=== PATIENT | female | born 1950 | race Caucasian/White ===

== ENCOUNTER → 2017-09-25 12:28 | Outpatient (CLI) | payer MEDICARE, BC, SELFPAY ==
--- NOTE | 2017-09-25 | DI.MG.S_ITS ---
BILATERAL DIGITAL SCREENING MAMMOGRAM 3D/2D WITH CAD: 09/25/2017 CLINICAL: Routine screening. Family history of breast cancer. Comparison is made to exams dated: 09/13/2015 mammogram, 10/31/2011 mammogram, and 12/01/2007 mammogram - [facility]. The tissue of both breasts is heterogeneously dense. This may lower the sensitivity of mammography. Current study was also evaluated with a Computer Aided Detection (CAD) system. No significant masses, calcifications, or other findings are seen in either breast. There has been no significant interval change. IMPRESSION: NEGATIVE There is no mammographic evidence of malignancy. A 1 year screening mammogram is recommended. This exam was interpreted at Station ID: [id number]. NOTE: For mammograms, a report in lay terms will be sent to the patient. Approximately 15% of breast malignancies will not be visualized mammographically. In the management of a palpable breast mass, a negative mammogram must not discourage biopsy of a clinically suspicious lesion. Electronically Signed By: Pete najera/shanice:09/25/2017 17:05:35 letter sent: Normal Exam ACR BI-RADS Category 1: Negative [id number]
== END ==
PROVIDERS: PCP Family Medicine; Visit Provider Family Medicine
DX: Z12.31 Encounter for screening mammogram for malignant neoplasm of breast (principal); Z80.3 Family history of malignant neoplasm of breast
CPT/HCPCS: 77063; 77067

== ENCOUNTER → 2017-11-14 07:24 | Outpatient (CLI) | payer MEDICARE, BC, SELFPAY ==
[2017-11-14 09:22] LABS: Cholesterol 190 mg/dL (140-199); Glucose 86 mg/dL (80-110); HDL Cholesterol 66 mg/dL (40-60); LDL Cholesterol Calculated 110 mg/dL (<100); Triglycerides 71 mg/dL (35-150)
== END ==
PROVIDERS: Family Provider Family Medicine; PCP Family Medicine; Visit Provider Family Medicine
DX: Z13.1 Encounter for screening for diabetes mellitus (principal); Z13.220 Encounter for screening for lipoid disorders
CPT/HCPCS: 36415; 80061; 82947

== ENCOUNTER → 2017-12-19 13:40 | Outpatient (CLI) | payer MEDICARE, BC, SELFPAY ==
--- NOTE | 2017-12-19 13:41 | DI.RAD.S_ITS ---
This blank DEXA report has been sent in error by the PACS system. The correct and complete report will be forthcoming in 1-2 days. Thank you for your patience and understanding. Dictated by: Satya Garcia M.D. on 12/19/2017 at 14:35 Approved by: Satya Garcia M.D. on 12/19/2017 at 14:36
== END ==
PROVIDERS: PCP Family Medicine; Visit Provider Family Medicine
DX: M85.852 Other specified disorders of bone density and structure, left thigh (principal); Z78.0 Asymptomatic menopausal state; Z82.62 Family history of osteoporosis
CPT/HCPCS: 77080

== ENCOUNTER 2018-04-23 12:37 | Day surgery (SDC) | payer MEDICARE, BC, SELFPAY ==
--- NOTE | 2018-04-23 | PATH_ITS ---
[facility] Accession Number: [id number] . 01 Material submitted: . SIGMOID POLYP AT 18CM . 02 Diagnosis: Sigmoid Polyp at 18 cm: Serrated lesion, favor sessile serrated adenoma. [facility]/04/24/2018 . 02 Electronically signed: . Kaylyn Tobin MD, Pathologist NPI- [id number] . 01 Gross description: . Received three formalin-filled containers each labeled with the patient's name. . A. In a container labeled antrum are two less than 0.1 to 0.1 cm portions of tissue. Entirely submitted in cassette A. B. In a container labeled GE junction, the specimen consists of two 0.1 to 0.2 cm portions of tissue. Entirely submitted in cassette B. C. In a container labeled fundic polyp, the specimen consists of a 0.3 cm portion of tissue. Entirely submitted in cassette C. ([facility] [place][id number]) /[facility] . 02 Pathologist provided ICD-10: K63.5 . 02 CPT . 598079 Performed at: 01 [facility] [address] [facility], [place], [place] [id number] MD Pete Hoffman MD Phone: [phone] Performed at: 02 [facility] [place] [address] [place], [place] [id number] MD Diana Bernabe MD Phone: [phone]
[2018-04-23] MEDS: SODIUM CHLORIDE 0.9% 1,000 ML 200 ML IV (12:55)
[2018-04-23 13:10] VITALS: BP 108/72; PULSE 67; RESP 16; TEMP 36.9; O2SAT 100; BMI 17.8
--- NOTE | 2018-04-23 13:18 | PM.HP.1 ---
History of Present Illness Date Patient Seen: 04/23/18 Time Patient Seen: 13:18 Chief complaint: colonoscopy [id number] Narrative: 67-year-old female who last underwent colonoscopy 10 years ago for screening purposes. She presents now for surveillance. She has no new gastrointestinal symptoms. Denies nausea, vomiting, unintended weight loss, loss of appetite, abdominal pain, change in bowel habits, diarrhea, constipation, melena, hematochezia, or bright red blood per rectum. Patient History Medical History Acne (Chronic ~1964) Actinic keratosis (Chronic ~2014) Anxiety (Chronic ~1964) Chronic back pain (Chronic ~1984) Chronic cough (Chronic) Depression (Chronic ~1964) Foot pain (Chronic) Hemorrhoid (Chronic ~1984) Kidney stones (Chronic ~2012) Mitral valve insufficiency (Chronic ~2005) Osteoarthritis (Chronic ~2012) Seasonal allergies (Chronic) Seborrheic dermatitis (Chronic ~2013) Shoulder pain (Chronic ~2011) Skin cancer, basal cell (Chronic ~2004) Vision disorder (Chronic) Chicken pox (Resolved ~1956) Measles (Resolved ~1954) Mumps (Resolved ~1958) Surgical History History of colonoscopy (Acute) Anesthesia (Resolved) History of removal of cyst (Resolved) Status post Mohs surgery (Resolved) Status post appendectomy (05/03/07) Family History Father Prostate cancer Grandfather Heart disease Mother Age: 93 Uterine cancer Stroke Breast cancer Congestive heart failure Diabetes mellitus Hypertension High cholesterol History of fracture of both hips Sister Age: 62 Stress Grandmother No problems noted. Grandfather Cancer Grandmother Heart disease Social History marital status: number of children: 2 household members: spouse lives independently: Yes education level: college occupational status: other (retired) Smoking Status: Never smoker alcohol intake: current (rare) substance use type: does not use Family & Social History Family History Father Prostate cancer Grandfather Heart disease Mother Age: 93 Uterine cancer Stroke Breast cancer Congestive heart failure Diabetes mellitus Hypertension High cholesterol History of fracture of both hips Sister Age: 62 Stress Grandmother No problems noted. Grandfather Cancer Grandmother Heart disease Social History: household members spouse lives independently Yes Tobacco & Substance use: Smoking Status Never smoker alcohol intake current Meds Home Medications Medication Instructions Recorded Confirmed Type cholecalciferol (vitamin D3) 2,000 2,000 unit PO DAILY #90 cap 11/19/17 11/19/17 Rx unit capsule magnesium 250 mg tablet 250 mg PO DAILY #90 tab 11/19/17 11/19/17 Rx omega-3 fatty acids 1,000 mg 1,000 mg PO DAILY #90 cap 11/19/17 11/19/17 Rx capsule varicella-zoster glycoE [id number] 0.5 ml IM ONCE #1 each 11/19/17 11/19/17 Rx adj(PF) 50 mcg/0.5 mL IM susp, kit hydrochlorothiazide 25 mg tablet 25 mg PO QDAY #90 tab 02/19/18 Rx Allergies Allergy/AdvReac Type Severity Reaction Status Date / Time erythromycin base AdvReac Unknown GI UPSET Verified 11/19/17 09:05 [ERYTHROMYCIN BASE] Review of Systems Review of Systems All systems reviewed & are unremarkable except as noted in HPI and below Exam Vital Signs (past 8 hours): - 04/23/18 13:10 Temperature 98.4 F Pulse Rate 67 Respiratory Rate 16 Blood Pressure 108/72 Pulse Oximetry 100 Oxygen Delivery Method Room Air Narrative Exam Narrative: Well-nourished well-developed thin female in no acute distress. Alert oriented x3 Sclera nonicteric Regular rate and rhythm at the moment Abdomen soft, nondistended, nontender Extremities show no clubbing or cyanosis Objective Labs Labs: No laboratory or radiographic studies for review Assessment & Plan Assessment Narrative: 67-year-old female requiring colorectal screening since it has been 10 years from her last examination. Colonoscopy is currently recommended. Technical details of the procedure were discussed. Risks, benefits, alternatives were explained. Risks including but not limited to sedation, aspiration, bleeding, pain, missed lesion, incomplete examination, need for further radiographic studies, colonic perforation, need for major abdominal surgery, and all attendant risks of surgery were discussed in detail. All questions were answered to her satisfaction, and she voiced understanding. Consent was placed on the chart. We will proceed as above.
--- NOTE | 2018-04-23 13:21 | PM.PREOP ---
Pre-operative Note Interval Note History & Physical reviewed/Exam performed by Physician: Yes Changes to H&P: No H&P completed within 30 days and has changed as indicated here:: Patient seen and examined today. History and physical examination placed on the chart. Obviously, there have been no changes in the last 10 min. Proceed with colonoscopy today as planned. ASA Class (for procedural sedation): II
[2018-04-23] MEDS: fentaNYL 250 MCG/5 ML INJ IV (13:30)
[2018-04-23] MEDS: MIDAZOLAM 5 MG/5 ML VIAL IV (13:30)
[2018-04-23 13:50] VITALS: BP 99/60; PULSE 60; RESP 12; TEMP 36; O2SAT 97
--- NOTE | 2018-04-23 13:50 | P.OP.ENDO_ITS ---
Operative Date/Time/Diagnoses Date of procedure: 04/23/18 Time of procedure: 13:48 Pre-op diagnosis: Colorectal screening Post-op diagnosis: other (Diverticulosis and sigmoid colon polyp) Procedure & Clinicians Study performed: 1. Sedation per surgeon 2. Colonoscopy with cold forceps polypectomy Same procedure as scheduled: Yes Indications: 67-year-old female who presents for colorectal screening. It has been approximately 10 years since her last examination. She review currently requires colonoscopy for surveillance. Surgeon: Pollo Perry Procedure Notes SCOAP/Timeout: Yes Procedure in detail: After obtaining informed consent, the patient was brought to the GI suite and placed in the left lateral decubitus position on the examination table. After placement of appropriate monitors, the patient was given incremental doses of Versed and Fentanyl until an appropriate level of sedation was achieved. A time out was held per SCOAP protocol. A digital rectal examination was performed and did not reveal any masses or obstructing lesions. The colonoscope was gently passed into the patient's anus and the entire colon navigated to the level of the cecum with minimal difficulty. Once in the cecum, the scope was withdrawn being sure to go before and beyond all mucosal folds and prominences and get an excellent examination. The findings are noted above. At the level of the rectal vault, the scope was r etroflexed and the internal anal canal was examined. The scope was straightened and air aspirated from the colon. The instrument was removed from the patient's body and the procedure was concluded. The patient was allowed to awaken from sedation without difficulty and taken to the post-anesthesia care unit in good condition. Scope withdrawal time: 9:03 min Sedation minutes: 22 Findings: diverticulosis and polyp Specimen(s): other (Sigmoid polyp at 18 cm) Complications: none Impression: See above Recommendations: Colonscopy in 5 years, High fiber diet and Will call with biopsy results Plan for aftercare: 1. Discharge home Follow up: as needed Disposition: PACU
[2018-04-23 13:55] VITALS: BP 109/61; PULSE 61; RESP 11; O2SAT 98
[2018-04-23 14:00] VITALS: BP 93/54; PULSE 68; RESP 15; O2SAT 99
[2018-04-23 14:06] VITALS: BP 109/65; PULSE 64; RESP 18; TEMP 36.5; O2SAT 99
[2018-04-23 14:50] VITALS: BP 105/60; PULSE 60; RESP 16; TEMP 36.3; O2SAT 100
== END 2018-04-23 15:00 | disposition home or self-care (01) ==
PROVIDERS: PCP Family Medicine; Visit Provider Surgery
PROC: 0DJD8ZZ Inspection of Lower Intestinal Tract, Via Natural or Artificial Opening Endoscopic (ICD-10-PCS; CPT 45378; principal; 2018-04-23 14:00)
DX: Z12.11 Encounter for screening for malignant neoplasm of colon (principal); K57.30 Diverticulosis of large intestine without perforation or abscess without bleeding; D12.5 Benign neoplasm of sigmoid colon; F41.9 Anxiety disorder, unspecified; F33.41 Major depressive disorder, recurrent, in partial remission
CPT/HCPCS: 45380; 88305; 99152; J2250; J3010

== ENCOUNTER 2018-04-25 10:27 | Emergency (ER) | payer MEDICARE, BC, SELFPAY ==
[2018-04-25 10:35] VITALS: BP 107/63; PULSE 71; RESP 16; TEMP 36.6; O2SAT 98
--- NOTE | 2018-04-25 12:26 | ED_ITS ---
HPI - Nausea/Vomiting/Diarrhea <Marysol Yancey PA-C - Last Filed: 04/25/18 16:40> General Chief complaint: Nausea/Vomiting/Diarrhea Stated complaint: colonoscopy on states weak, queezy since Time Seen by Provider: 04/25/18 12:25 Source: patient Mode of arrival: ambulatory Limitations: no limitations History of Present Illness HPI Narrative: This 67-year-old female comes to ED due to persistent nausea. She states that this started following her colonoscopy and she vomited prior to leaving the hospital here. She states that she has not had vomiting since then though close a few times. She states that nausea is worse with sitting up for a bit, after which she will start to feel queasy . She has been taking fluids and has had a couple of glasses of water today she says, but food seems to sit in her stomach. She states that she has belching and just started passing flatus today. No bowel movement yet. She does not have abdominal pain. She does not have urinary symptoms. She denies chest pain or dyspnea. She states that she feels weak and dizzy when she sits up, which she describes as a little lightheaded. She denies other complaints on systems r eview Related Data Previous Rx's Medication Instructions Recorded cholecalciferol (vitamin D3) 2,000 2,000 unit PO DAILY #90 cap 11/19/17 unit capsule magnesium 250 mg tablet 250 mg PO DAILY #90 tab 11/19/17 omega-3 fatty acids 1,000 mg 1,000 mg PO DAILY #90 cap 11/19/17 capsule varicella-zoster glycoE [id number] 0.5 ml IM ONCE #1 each 11/19/17 adj(PF) 50 mcg/0.5 mL IM susp, kit hydrochlorothiazide 25 mg tablet 25 mg PO QDAY #90 tab 02/19/18 ondansetron 4 mg PO Q8H PRN #8 tab 04/25/18 Allergies Allergy/AdvReac Type Severity Reaction Status Date / Time erythromycin base AdvReac Unknown GI UPSET Verified 11/19/17 09:05 [ERYTHROMYCIN BASE] Review of Systems <Maryosl Yancey PA-C - Last Filed: 04/25/18 16:40> Review of Systems ROS Unobtainable: All systems reviewed & are unremarkable except as noted in HPI and below PFSH <Marysol Yancey PA-C - Last Filed: 04/25/18 16:40> Medical History Acne (Chronic ~1964) Actinic keratosis (Chronic ~2014) Anxiety (Chronic ~1964) Chronic back pain (Chronic ~1984) Chronic cough (Chronic) Depression (Chronic ~1964) Foot pain (Chronic) Hemorrhoid (Chronic ~1984) Kidney stones (Chronic ~2012) Mitral valve insufficiency (Chronic ~2005) Osteoarthritis (Chronic ~2012) Seasonal allergies (Chronic) Seborrheic dermatitis (Chronic ~2013) Shoulder pain (Chronic ~2011) Skin cancer, basal cell (Chronic ~2004) Vision disorder (Chronic) Chicken pox (Resolved ~1956) Measles (Resolved ~1954) Mumps (Resolved ~1958) Family History Father Prostate cancer Grandfather Heart disease Mother Age: 93 Uterine cancer Stroke Breast cancer Congestive heart failure Diabetes mellitus Hypertension High cholesterol History of fracture of both hips Sister Age: 62 Stress Grandmother No problems noted. Grandfather Cancer Grandmother Heart disease Social History marital status: number of children: 2 household members: spouse lives independently: Yes education level: college occupational status: other (retired) Smoking Status: Never smoker alcohol intake: current (rare) substance use type: does not use Exam <Marysol Yancey PA-C - Last Filed: 04/25/18 16:40> Narrative Exam Narrative: Postural vitals: Standing BP 104/64, pulse 63, BP sitting 108/73, pulse 64, BP standing 114/60, pulse 60 GENERAL APPEARANCE: Patient sitting comfortably, in no distress. HEENT: PERRL, EOMI, no scleral icterus, conjunctivae pink NECK: Supple LUNGS: Clear to auscultation bilaterally. HEART: Rate and rhythm regular, normal S1 and S2, no S3 or S4. ABDOMEN: Soft, nontender, nondistended, bowel sounds present x 4 quadrants, no masses palpable, no hepatosplenomegaly. EXTREMITIES: No edema, no calf tenderness DERMATOLOGIC: No jaundice or exanthem NEUROLOGIC: Alert and oriented with normal speech and coordination Initial Vital Signs Initial Vital Signs: Vital Signs Temperature 97.9 F 04/25/18 10:35 Pulse Rate 71 04/25/18 10:35 Respiratory Rate 16 04/25/18 10:35 Blood Pressure 107/63 04/25/18 10:35 Pulse Oximetry 98 04/25/18 10:35 <Nathalia Romero DO - Last Filed: 04/25/18 18:41> Initial Vital Signs Initial Vital Signs: Vital Signs Temperature 97.9 F 04/25/18 10:35 Pulse Rate 71 04/25/18 10:35 Respiratory Rate 16 04/25/18 10:35 Blood Pressure 107/63 04/25/18 10:35 Pulse Oximetry 98 04/25/18 10:35 Course <Marysol Yancey PA-C - Last Filed: 04/25/18 16:40> Additional Information: Patient has not had any vomiting while in the department. She states the only episode of vomiting she had was prior to leaving the hospital after procedure. She is tolerating fluids and some bland food here in the department after Zofran. She is belching frequently she says and started passing flatus today. She has no abdominal pain or tenderness on exam and bowel sounds are normal. Advised continued treatment of nausea and return if any acute changes such as abdominal pain or fever, and she is agreeable with this plan. Orders Ordered: Discontinued Medications Ondansetron HCl (Zofran Odt) 4 mg PO NOW ONE Stop: 04/25/18 12:34 Last Admin: 04/25/18 12:51 Dose: 4 mg Vital Signs - 8 hr 04/25/18 12:39 04/25/18 12:42 04/25/18 12:45 Pulse Rate Pulse Rate [Orthostatic Lying] 60 Pulse Rate [Orthostatic Sitting] 64 Pulse Rate [Orthostatic Standing] 63 Respiratory Rate Blood Pressure Blood Pressure [Orthostatic Lying] 114/60 Blood Pressure [Orthostatic Sitting] 108/73 Blood Pressure [Orthostatic Standing] 104/64 Blood Pressure [Right Arm] 114/60 104/64 Pulse Oximetry 04/25/18 13:33 04/25/18 14:18 Pulse Rate 60 76 Pulse Rate [Orthostatic Lying] Pulse Rate [Orthostatic Sitting] Pulse Rate [Orthostatic Standing] Respiratory Rate 17 16 Blood Pressure 106/62 Blood Pressure [Orthostatic Lying] Blood Pressure [Orthostatic Sitting] Blood Pressure [Orthostatic Standing] Blood Pressure [Right Arm] 104/58 L Pulse Oximetry 100 96 <Nathalia Romero DO - Last Filed: 04/25/18 18:41> Orders Ordered: Discontinued Medications Ondansetron HCl (Zofran Odt) 4 mg PO NOW ONE Stop: 04/25/18 12:34 Last Admin: 04/25/18 12:51 Dose: 4 mg Vital Signs - 8 hr 04/25/18 12:39 04/25/18 12:42 04/25/18 12:45 Pulse Rate Pulse Rate [Orthostatic Lying] 60 Pulse Rate [Orthostatic Sitting] 64 Pulse Rate [Orthostatic Standing] 63 Respiratory Rate Blood Pressure Blood Pressure [Orthostatic Lying] 114/60 Blood Pressure [Orthostatic Sitting] 108/73 Blood Pressure [Orthostatic Standing] 104/64 Blood Pressure [Right Arm] 114/60 104/64 Pulse Oximetry 04/25/18 13:33 04/25/18 14:18 Pulse Rate 60 76 Pulse Rate [Orthostatic Lying] Pulse Rate [Orthostatic Sitting] Pulse Rate [Orthostatic Standing] Respiratory Rate 17 16 Blood Pressure 106/62 Blood Pressure [Orthostatic Lying] Blood Pressure [Orthostatic Sitting] Blood Pressure [Orthostatic Standing] Blood Pressure [Right Arm] 104/58 L Pulse Oximetry 100 96 Discharge Plan Departure Patient Disposition: Home Clinical Impression: Nausea after anesthesia Qualifiers: Encounter type: initial encounter Qualified Code(s): T88.59XA - Other complications of anesthesia, initial encounter Discharge Date/Time: 04/25/18 14:15 Interventions: ED Discharge Assessment Last Done: 04/25/18 14:18 Instructions: DI for Nausea -- Adult Activity Restrictions/Additional Instructions: Since you are feeling a little bit better and keeping down food and fluids, you can a monitor at home. Please return as we talked about if you have acutely worsening symptoms, or new symptoms such as fever, protracted vomiting, or abdominal pain. Otherwise, I have sent in a prescription for antinausea medicine for you to take as needed. Please continue frequent clear fluids, and try to keep a little bit of bland food in your belly, try to eat a small amount every hr or 2 to help with the nausea (i.e. Bananas, white rice, toast, clear broth, applesauce). You can advance your diet as tolerated when you are feeling better. You can add liquid antacid or Gas-X if needed. Please follow-up with your surgeon or PCP if you are not feeling better over the next couple of days. Prescriptions: New ondansetron 4 mg tablet,disintegrating 4 mg PO Q8H PRN (Reason: nausea and vomiting) Qty: 8 RF: 0 No Action hydrochlorothiazide 25 mg tablet 25 mg PO QDAY Qty: 90 RF: 3 omega-3 fatty acids [Fish Oil Concentrate] 1,000 mg capsule 1,000 mg PO DAILY Qty: 90 RF: 0 magnesium 250 mg tablet 250 mg PO DAILY Qty: 90 RF: 0 cholecalciferol (vitamin D3) 2,000 unit capsule 2,000 unit PO DAILY Qty: 90 RF: 0 varicella-zoster [id number]-AS01B (PF) [Shingrix (PF)] 50 mcg/0.5 mL suspension for reconstitution 0.5 ml IM ONCE Qty: 1 RF: 1 Referrals: Pollo Perry MD [Physician] - Ember Pritchard DO [Primary Care Provider] - <Nathalia Romero DO - Last Filed: 04/25/18 18:41> Cosign ED Attending Cosignature Attestation: I was immediately available in the department for consultation. This documentation has been reviewed. Supervised by Nathalia Romero DO
[2018-04-25 12:39] VITALS: BP 114/60
[2018-04-25 12:42] VITALS: BP 104/64
[2018-04-25 12:45] VITALS: BP 104/64; BP 108/73; BP 114/60; PULSE 60; PULSE 63; PULSE 64
[2018-04-25] MEDS: ONDANSETRON 4 MG ODT PO (12:51)
[2018-04-25 13:33] VITALS: BP 104/58; PULSE 60; RESP 17; O2SAT 100
--- NOTE | 2018-04-25 13:50 | PC.NURSE ---
Pt tolerating applesauce, crackers, and liquids. Denies nausea at this time.
--- NOTE | 2018-04-25 14:14 | PC.NURSE ---
I agree with all assessments and treatments completed by student nurse.
[2018-04-25 14:18] VITALS: BP 106/62; PULSE 76; RESP 16; O2SAT 96
== END 2018-04-25 14:15 | disposition home or self-care (01) ==
PROVIDERS: Emergency Provider Internal Medicine; PCP Family Medicine
DX: T88.59XA Other complications of anesthesia, initial encounter (principal); R11.0 Nausea
CPT/HCPCS: 99283

== ENCOUNTER → 2019-07-06 14:39 | Outpatient (CLI) | payer MEDICARE, BC, SELFPAY ==
[2019-07-06 14:56] LABS: Bacteria Urine None Seen
[2019-07-06 16:17] LABS: Appearance Urine UA CLEAR; Bilirubin Urine UA NEGATIVE (NEGATIVE); Color Urine UA YELLOW; Glucose Urine UA NEGATIVE (Negative); Ketones Urine UA NEGATIVE (NEGATIVE); Leukocyte Esterase Urine UA NEGATIVE (NEGATIVE); Nitrite Urine UA NEGATIVE (Negative); Occult Blood Urine UA 3+ (Negative); Protein Urine UA NEGATIVE (Negative); Specific Gravity Urine UA <=1.005 (1.000-1.035); Urobilinogen Urine UA 0.2 E.U./dL (0.2)
[2019-07-06 16:27] LABS: pH Urine UA 6.5 (4.5-8.0)
[2019-07-06 16:32] LABS: Hematocrit 38.5 % (36-46); Hemoglobin 13.2 g/dL (12.0-16.0); Mean Corpuscular HGB Conc 34.2 % (30-36); Mean Corpuscular Hemoglobin 33.1 PG (26-34); Mean Corpuscular Volume 96.6 fL (80-100); Platelet Count 249 X10^3/uL (150-400); Red Blood Cell Count 3.99 X10^6/uL (4.0-5.2); Red Cell Distribution Width 13.3 % (11.6-14.8); White Blood Cell Count 5.2 X10^3/uL (4.5-11.0)
[2019-07-06 16:38] LABS: Culture Indicated Urine Cult Not Indicated; RBC Urine 10-30/HPF (0-5/HPF); Squamous Epithelial Cell Urine 0-1 /HPF (0-5/HPF); WBC Urine 0-1/HPF (0-5/HPF)
[2019-07-06 16:44] LABS: Alanine Aminotransferase 16 IU/L (<35); Albumin 4.2 g/dL (3.5-5.0); Albumin Globulin Ratio 1.2 (1.0-2.8); Alkaline Phosphatase 79 U/L (38-126); Aspartate Aminotransferase 29 IU/L (14-36); BUN Creatinine Ratio 24.6 (6-22); Bilirubin Total 0.9 mg/dL (0.2-1.3); Blood Urea Nitrogen 16 mg/dL (7-17); Calcium 9.3 mg/dL (8.4-10.2); Carbon Dioxide 34 mmol/L (22-32); Chloride 99 mmol/L (98-107); Estimated Glomerular Filt Rate > 60.0 mL/min (>60); Globulin 3.4 g/dL (1.7-4.1); Glucose 156 mg/dL (80-110); HEMOLYSIS < 15 (0-50); Sodium 138 mmol/L (137-145); Total Protein 7.6 g/dL (6.3-8.2)
[2019-07-06 17:54] LABS: Neutrophils Absolute Manual 3328 /uL (3000-5900); RBC Morphology Normal Morphology; Total Cells Counted 100
== END ==
PROVIDERS: PCP Family Medicine; Referring Provider Family Medicine; Visit Provider Family Medicine
DX: R31.9 Hematuria, unspecified (principal)
CPT/HCPCS: 36415; 80053; 81001; 85025

== ENCOUNTER → 2019-07-19 07:58 | Outpatient (CLI) | payer MEDICARE, BC, SELFPAY ==
[2019-07-19 08:52] LABS: Appearance Urine UA SL CLOUDY; Bilirubin Urine UA NEGATIVE (NEGATIVE); Color Urine UA RED; Glucose Urine UA NEGATIVE (Negative); Ketones Urine UA NEGATIVE (NEGATIVE); Leukocyte Esterase Urine UA TRACE (NEGATIVE); Nitrite Urine UA NEGATIVE (Negative); Occult Blood Urine UA 3+ (Negative); Protein Urine UA 2+ (Negative); Urobilinogen Urine UA 0.2 E.U./dL (0.2)
[2019-07-19 09:00] LABS: BUN Creatinine Ratio 20.6 (6-22); Blood Urea Nitrogen 14 mg/dL (7-17); Calcium 9.2 mg/dL (8.4-10.2); Carbon Dioxide 31 mmol/L (22-32); Chloride 101 mmol/L (98-107); Estimated Glomerular Filt Rate > 60.0 mL/min (>60); Glucose 98 mg/dL (80-110); HEMOLYSIS < 15 (0-50); Potassium 3.3 mmol/L (3.4-5.1); Sodium 139 mmol/L (137-145)
[2019-07-19 09:02] LABS: Bacteria Urine Few (2-10); RBC Urine >100/HPF (0-5/HPF); Squamous Epithelial Cell Urine 1-5 /HPF (0-5/HPF); WBC Urine 1-5/HPF (0-5/HPF)
[2019-07-19 09:03] LABS: Culture Indicated Urine Specimen Cultured
== END ==
PROVIDERS: PCP Family Medicine; Referring Provider Family Medicine; Visit Provider Family Medicine
DX: E87.6 Hypokalemia (principal); R73.09 Other abnormal glucose; R31.9 Hematuria, unspecified
CPT/HCPCS: 36415; 80048; 81001; 87086

== ENCOUNTER → 2019-07-21 09:10 | Outpatient (CLI) | payer MEDICARE, BC, SELFPAY ==
--- NOTE | 2019-07-21 09:12 | DI.US.S_ITS ---
PROCEDURE: US RENAL COMPLETE INDICATIONS: PERSISTENT HEMATURIA TECHNIQUE: Real-time scanning was performed of the kidneys and bladder, with image documentation. COMPARISON: None. FINDINGS: Kidneys: Kidneys are normal in size. Right kidney measures 8.8 cm long; left kidney measures 10.2 cm long. Right renal cortical thickness is 1.1 cm; left renal cortical thickness is 1.4 cm. Renal cortical echotexture is normal. No hydronephrosis or nephrolithiasis. No suspicious solid mass lesions. Bladder: Pre-void bladder volume is 99 mL. Post-void residual is zero mL. Pre-void images demonstrate no intraluminal masses or stones. On pre-void images, both of the ureteral jets are noted with color Doppler interrogation. (Of note, ureteral jets may not be detectable in up to 25% of cases due to insufficient differences in specific gravity between ureteral and bladder urine). Presumed echogenic debris versus blood product seen in the bladder Miscellaneous: No free pelvic fluid. IMPRESSION: Nonspecific presumed debris versus blood products within the bladder. Dictated by: Kaleb Irizarry M.D. on 07/21/2019 at 12:43 Approved by: Kaleb Irizarry M.D. on 07/21/2019 at 12:51
== END ==
PROVIDERS: PCP Family Medicine; Referring Provider Family Medicine; Visit Provider Family Medicine
DX: N02.9 Recurrent and persistent hematuria with unspecified morphologic changes (principal)
CPT/HCPCS: 76770

== ENCOUNTER → 2019-08-04 11:40 | Outpatient (CLI) | payer MEDICARE, BC, SELFPAY ==
--- NOTE | 2019-08-04 11:42 | DI.CT.S_ITS ---
PROCEDURE: CT ABDOMEN PELVIS WO/W CON INDICATIONS: hematuria, h/o renal calculi TECHNIQUE: Optional 5 mm thick noncontrast images acquired from the diaphragm to the symphysis pubis. After the administration of intravenous contrast, 5 mm thick images acquired from the diaphragm to the symphysis pubis after a 10-minute delay. 2 mm thick coronal and sagittal reformats were then performed of the kidneys and ureters. For radiation dose reduction, the following was used: automated exposure control, adjustment of mA and/or kV according to patient size. COMPARISON: [facility], , RENAL COMPLETE, 07/21/2019, 9:23. FINDINGS: Image quality: Excellent. Lung bases: Lung bases are clear. Heart size is normal. Urinary system: Both kidneys are normal in size, without hydronephrosis or nephrolithiasis on pre-contrast images on the left. In contrast there is moderate right-sided hydronephrosis and a 4 x 6 mm calculus appears present within the right renal collecting system partially obscured by overlying contrast on the delayed postcontrast imaging. This calculus is located with additional adjacent punctate calculi at the anterior calyx of the lower third of the right kidney Hydroureter on the right extends inferiorly to the junction of the middle and lower thirds of the ureter, seen on series 2 image 50. Dilatation of the ureter below this level is not present. No perinephric fat stranding. There is normal bilateral renal enhancement. Renal calyces appear normal in morphology when filled with contrast. Opacified portions of both ureters demonstrate normal caliber. Bladder wall thickness is normal. No calcified bladder stones. Other solid organs: Liver is normal in size and enhancement. Gallbladder appears normal. Biliary system is non dilated. Pancreas enhances normally. Spleen is normal in size and enhancement. No adrenal nodules. Peritoneum and bowel: Bowel loops demonstrate normal wall thickness and caliber. No free fluid or air. Nodes and vessels: No retroperitoneal or mesenteric adenopathy by size criteria. Aorta and inferior vena cava are normal in size. Abdominal wall: No ventral hernias. Pelvis: No pathologic free pelvic fluid. No inguinal hernias or adenopathy. Bones: No suspicious bony lesions. No vertebral body compression fractures. IMPRESSION: 1. No left-sided urinary tract abnormality found. 2. Impacted 4 x 6 mm calculus is present causing moderate hydronephrosis and hydroureter on the right with a calculus located at the junction of the middle and lower thirds of the right ureter within the pelvis. 3. A nonobstructive calculus measuring also approximately 4 x 6 mm with several adjacent punctate calculi is present within the collecting system of the lower third of the right kidney and these calculi are not themselves obstructive. 4. No urothelial or renal cortical mass is suspected, no bladder mass or calculus is seen. Dictated by: Michael Petty M.D. on 08/04/2019 at 14:40 Approved by: Michael Petty M.D. on 08/04/2019 at 14:45
[2019-08-04 12:27] LABS: BUN Creatinine Ratio 27.5 (6-22); Blood Urea Nitrogen 19 mg/dL (7-17); Estimated Glomerular Filt Rate > 60.0 mL/min (>60)
== END ==
PROVIDERS: PCP Family Medicine; Referring Provider Family Medicine; Visit Provider Family Medicine
DX: Z01.812 Encounter for preprocedural laboratory examination (principal); N13.2 Hydronephrosis with renal and ureteral calculous obstruction; R31.9 Hematuria, unspecified; Z87.442 Personal history of urinary calculi
CPT/HCPCS: 36415; 74178; 82565; 84520; Q9967

== ENCOUNTER → 2019-08-16 08:38 | Outpatient (CLI) | payer MEDICARE, BC, SELFPAY ==
--- NOTE | 2019-08-16 | DI.RAD.S_ITS ---
PROCEDURE: XR KUB INDICATIONS: Calculus of kidney TECHNIQUE: One view of the abdomen acquired. COMPARISON: [facility], CT, CT ABDOMEN PELVIS WO/W CON, 08/04/2019, 12:27. [facility], CR, KUB XRAY (1 VIEW ABDOMEN), 08/29/2015, 13:31. FINDINGS: Surgical changes and devices: None. Bowel: Bowel gas pattern is normal. There is a moderate amount of stool seen within the colon. Soft tissues: The previously seen distal right ureteral stone is not seen by plain film. The previously seen right renal stones are also not definitely seen. Calcifications can be seen overlying the superior aspect of the right kidney, which are attributed to rib cartilage calcification. Visualized solid organ contours appear normal in size. Bones: No suspicious bony lesions. Mild dextroconvex scoliotic curvature is seen. IMPRESSION: The previously seen right-sided kidney stones and right ureteral stone that can be seen on CT are not definitely seen by plain film. Dictated by: Michael Mccarty M.D. on 08/16/2019 at 8:20 Approved by: Michael Mccarty M.D. on 08/16/2019 at 8:23
== END ==
PROVIDERS: PCP Family Medicine; Referring Provider Specialist; Visit Provider Specialist
DX: N20.0 Calculus of kidney (principal)
CPT/HCPCS: 74018

== ENCOUNTER → 2019-08-24 09:43 | Outpatient (CLI) | payer MEDICARE, BC, SELFPAY ==
--- NOTE | 2019-08-24 | DI.CT.S_ITS ---
PROCEDURE: CT KIDNEY URETER BLADDER (KUB) INDICATIONS: calculus of kidney TECHNIQUE: Noncontrast 5 mm thick sections acquired from the diaphragms to the symphysis. 5 mm thick coronal and sagittal reformats were then performed. For radiation dose reduction, the following was used: automated exposure control, adjustment of mA and/or kV according to patient size. COMPARISON: [facility], CT, IVP (ABD & PEL WWO CONTRAST), 07/12/2014, 8:55. [facility], CT, CT ABDOMEN PELVIS WO/W CON, 08/04/2019, 12:27. [facility], US, US RENAL COMPLETE, 07/21/2019, 9:23. [facility], CR, XR KUB, 08/16/2019, 8:54. FINDINGS: Image quality: Excellent. Lung bases: Lung bases are clear. Heart size is normal. Urinary system: There is an obstructing right ureteral stone measuring 6 mm, which is seen at the S1 level, which is similar to the prior examination. There is prominent right-sided hydroureter and hydronephrosis. Nonobstructing right-sided kidney stones are seen, with an irregular 9 mm stone seen. No definite left-sided kidney stones are seen. Both kidneys are normal in size. Bladder wall thickness is normal; no calcified bladder stones. Other solid organs: Liver is normal in size. Gallbladder wall does not appear thickened. Pancreas is normal in contours. Spleen is normal in size. No adrenal nodules. Peritoneum and bowel: Unenhanced bowel loops demonstrate normal wall thickness and caliber. No free fluid or air. Nodes and vessels: No retroperitoneal or mesenteric adenopathy by size criteria. Aorta and inferior vena cava are normal in caliber. Abdominal wall: No ventral hernias. Pelvis: No free pelvic fluid. No inguinal hernias or adenopathy. Bones: No suspicious bony lesions. No vertebral body compression fractures. Mild dextroconvex scoliotic curvature is seen. Focal L4-L5 and L5-S1 degenerative change is seen. Milder degenerative changes are seen elsewhere. IMPRESSION: 6 mm obstructing right-sided kidney stone seen at the S1 level, which is similar to the prior CT. There is associated prominent right-sided hydroureter and hydronephrosis. Nonobstructing right-sided kidney stones are seen. Incidental note is made of: Dextroconvex scoliotic curvature Focal L4-L5 and L5-S1 degenerative change Dictated by: Michael Mccarty M.D. on 08/24/2019 at 9:50 Approved by: Michael Mccarty M.D. on 08/24/2019 at 9:54
== END ==
PROVIDERS: PCP Family Medicine; Referring Provider Specialist; Visit Provider Specialist
DX: N13.2 Hydronephrosis with renal and ureteral calculous obstruction (principal); M47.816 Spondylosis without myelopathy or radiculopathy, lumbar region; M47.817 Spondylosis without myelopathy or radiculopathy, lumbosacral region
CPT/HCPCS: 74176

== ENCOUNTER → 2019-09-14 13:15 | Outpatient (CLI) | payer MEDICARE, BC, SELFPAY | PROVIDERS: PCP Family Medicine; Referring Provider Family Medicine; Visit Provider Family Medicine | DX: M81.0 Age-related osteoporosis without current pathological fracture (principal); Z78.0 Asymptomatic menopausal state; Z82.62 Family history of osteoporosis | CPT/HCPCS: 77080 ==

== ENCOUNTER → 2019-09-28 13:38 | Outpatient (CLI) | payer MEDICARE, BC, SELFPAY ==
[2019-09-29 08:20] LABS: COVID19 Sendout Not Detected (Not Detect)
== END ==
PROVIDERS: PCP Family Medicine; Visit Provider Physician Assistant
DX: Z01.812 Encounter for preprocedural laboratory examination (principal)
CPT/HCPCS: 87635

== ENCOUNTER 2019-10-01 07:44 | Day surgery (SDC) | payer MEDICARE, BC, SELFPAY ==
[2019-09-24 11:46] VITALS: BMI 20.5
[2019-10-01] VITALS (9 sets, daily range): BP systolic 109–118; BP diastolic 51–69; PULSE 57–76; RESP 10–16; TEMP 36.1–36.7; O2SAT 99–100; BMI 19.1
--- NOTE | 2019-10-01 06:00 | DI.RAD.S_ITS ---
PROCEDURE: XR KUB INDICATIONS: Right ureteral calculus TECHNIQUE: One view of the abdomen acquired. COMPARISON: X-ray KUB dated 08/16/[address] KUB dated 08/24/2019, both performed at [facility]. FINDINGS: Surgical changes and devices: None. Bowel: Bowel gas pattern is normal. Soft tissues: A 10 mm calcification is seen projecting over the inferior pole of the right kidney, corresponding to the nonobstructing stone seen on the prior CT from 08/24/2019. The previously seen obstructing right ureteral stone is not definitely redemonstrated. Visualized solid organ contours appear normal in size. Bones: No suspicious bony lesions. Multilevel degenerative disc disease is seen in the lower lumbar spine IMPRESSION: Calcification measuring 10 mm projecting over the inferior pole of the right kidney corresponds to the non-obstructing renal calculus seen on the CT from 08/24/2019. The obstructing distal right ureteral stone is not definitely redemonstrated on this radiograph. Dictated by: Milton Schaffer M.D. on 10/01/2019 at 8:40 Approved by: Milton Schaffer M.D. on 10/01/2019 at 8:45
--- NOTE | 2019-10-01 07:36 | PM.PREOP ---
Pre-operative Note COVID-19 COVID-19 status: Negative Interval Note History & Physical reviewed/Exam performed by Physician: Yes Changes to H&P: No
[2019-10-01] MEDS: LACTATED RINGERS 1,000 ML 42 ML IV (08:30)
[2019-10-01] MEDS: CEFAZOLIN 2 GM/100 ML FROZ.PIGGY IV (09:07)
--- NOTE | 2019-10-01 09:12 | SUR.OPER ---
Lithotomy on padded OR bed, head on pillow, arms secured on padded arm boards at <90 degrees abduction. Legs secured in padded yellow fins stirrups.
[2019-10-01] MEDS: IOPAMIDOL 15 ML VIAL INJ (09:37)
--- NOTE | 2019-10-01 09:53 | PM.OP.1 ---
Operative Date/Time/Diagnoses Date of procedure: 10/01/19 Time of procedure: 09:54 Pre-op diagnosis: Obstructing 6 mm mid right ureteral calculus. Post-op diagnosis: same Procedure & Clinicians Procedure: 1. Cystoscopy and right ureteroscopic laser lithotripsy. Same procedure as scheduled: Yes Indications: 1. Obstructing 6 mm right mid ureteral calculus. Click Yes if Unassisted: Yes Anesthesia Type: General Operative Notes Findings: Urethra-moderate caruncle associated with moderate atrophic vaginitis. Bladder-trace trabeculation, normal orifices bilaterally. No suspicious urothelial lesions or stones in the bladder. Right ureter-stone encountered status dissipated location overlying the sacroiliac region. Closure Type: not applicable Specimen(s): none sent Estimated Blood Loss (mL): 0 Blood products transfused: none Tourniquet time (min): 0 Procedure in detail: The patient was positioned in supine administered general anesthesia. She was then positioned in semi lithotomy. The lower abdomen genitalia and groin were then prepped and draped in sterile fashion. The 22 Slovenian panendoscope was passed in lower urinary tract with findings as described above. A 0.35 guidewire was then advanced through the scope and into the right collecting system under direct and fluoroscopic guidance. The panendoscope was then backloaded off the wire. A 9.5 Slovenian ureteral access sheath was then advanced over the wire under fluoroscopic guidance. It was then backloaded off the wire in removed. The wire was then secured to the drape. The semi rigid ureteral scope was then prepared and advanced the lower urinary tract and then into the right ureter. The index calculus was encountered in its expected location. The patient and all operating room personnel were then fitted with laser safety eyewear. A 273 micron laser fiber was then selected. Laser lithotripsy was then commenced with excellent and rapid fragmentation of the stone. Much of the material was irrigated from the ureter a few small crumbs remained. The ureteral scope was then backloaded removed and the wire was removed as well. The panendoscope sheath was then and placed back into the bladder and the contents drained. The patient was then repositioned in supine, awakened, and transferred reported to recovery in stable condition. Complications: none Post-operative Condition: stable Disposition: PACU Plan for aftercare: Discharge home
[2019-10-01] MEDS: FUROSEMIDE 40 MG/4 ML VIAL 20 MG IV (10:02)
[2019-10-01] MEDS: ONDANSETRON 4 MG/2 ML INJ IV (11:00)
--- NOTE | 2019-10-01 11:46 | SUR.PHASEII ---
Pt left when ready and left in stable condition. No nausea prior to d/c.
--- NOTE | 2019-10-01 11:52 | SUR.PHASEII ---
Late entry: ondansetron given earlier to prevent nausea, pt had a funny feeling in stomach and a strong hx of post op nauseA
== END 2019-10-01 11:35 | disposition home or self-care (01) ==
PROVIDERS: PCP Family Medicine; Referring Provider Specialist; Visit Provider Specialist
PROC: 0TF68ZZ Fragmentation in Right Ureter, Via Natural or Artificial Opening Endoscopic (ICD-10-PCS; CPT 52353; principal; 2019-10-01 09:00)
DX: N20.1 Calculus of ureter (principal)
CPT/HCPCS: 52353; 74018; 76000; J0690; J1100; J1940; J2405; J2704; J3010

== ENCOUNTER → 2019-10-11 12:44 | Outpatient (CLI) | payer MEDICARE, BC, SELFPAY ==
[2019-10-11 13:47] LABS: TSH w/ Reflex to FT4 1.84 uIU/mL (0.47-4.68)
[2019-10-11 16:50] LABS: Vitamin D 25 Hydroxy (D3) 82.4 ng/mL (30.0-100.0)
== END ==
PROVIDERS: PCP Family Medicine; Referring Provider Family Medicine; Visit Provider Family Medicine
DX: M81.0 Age-related osteoporosis without current pathological fracture (principal); L65.9 Nonscarring hair loss, unspecified
CPT/HCPCS: 36415; 82306; 84443

== ENCOUNTER → 2019-11-11 10:35 | Outpatient (CLI) | payer MEDICARE, BC, SELFPAY ==
[2019-11-11 12:17] LABS: Calcium 9.2 mg/dL (8.4-10.2); Uric Acid 4.5 mg/dL (2.5-6.2)
[2019-11-12 07:09] LABS: Parathyroid Hormone Int 28 pg/mL (15-65)
== END ==
PROVIDERS: PCP Family Medicine; Referring Provider Specialist; Visit Provider Specialist
DX: N20.0 Calculus of kidney (principal)
CPT/HCPCS: 36415; 82310; 83970; 84550

== ENCOUNTER → 2020-02-02 14:22 | Outpatient (CLI) | payer MEDICARE, BC, SELFPAY ==
[2020-02-02 16:59] LABS: BUN Creatinine Ratio 28.6 (6-22); Blood Urea Nitrogen 20 mg/dL (7-17); Carbon Dioxide 34 mmol/L (22-32); Chloride 99 mmol/L (98-107); Estimated Glomerular Filt Rate > 60.0 mL/min (>60); Glucose 118 mg/dL (80-110); HEMOLYSIS < 15 (0-50); Potassium 3.4 mmol/L (3.4-5.1); Sodium 136 mmol/L (137-145)
== END ==
PROVIDERS: PCP Family Medicine; Referring Provider Specialist; Visit Provider Specialist
DX: N20.0 Calculus of kidney (principal)
CPT/HCPCS: 36415; 80048

== ENCOUNTER → 2020-02-07 15:37 | Outpatient (CLI) | payer MEDICARE, BC, SELFPAY ==
--- NOTE | 2020-02-07 15:39 | DI.MG.S_ITS ---
BILATERAL DIGITAL SCREENING MAMMOGRAM 3D/2D WITH CAD: 02/07/2020 CLINICAL: Routine screening. Family history of breast cancer. Comparison is made to exams dated: 09/25/2017 mammogram, 09/13/2015 mammogram, and 10/31/2011 mammogram - [facility]. The tissue of both breasts is heterogeneously dense. This may lower the sensitivity of mammography. Current study was also evaluated with a Computer Aided Detection (CAD) system. No significant masses, calcifications, or other findings are seen in either breast. There has been no significant interval change. IMPRESSION: NEGATIVE There is no mammographic evidence of malignancy. A 1 year screening mammogram is recommended. This exam was interpreted at Station ID: [id number]. NOTE: For mammograms, a report in lay terms will be sent to the patient. Approximately 15% of breast malignancies will not be visualized mammographically. In the management of a palpable breast mass, a negative mammogram must not discourage biopsy of a clinically suspicious lesion. Electronically Signed By: Pete najera/shanice:02/08/2020 10:38:17 letter sent: Normal Exam ACR BI-RADS Category 1: Negative 3341F
== END ==
PROVIDERS: PCP Family Medicine; Referring Provider Family Medicine; Visit Provider Family Medicine
DX: Z12.31 Encounter for screening mammogram for malignant neoplasm of breast (principal)
CPT/HCPCS: 77063; 77067

== ENCOUNTER → 2020-09-19 13:29 | Outpatient (CLI) | payer MEDICARE, BC, SELFPAY ==
--- NOTE | 2020-09-19 13:31 | DI.RAD.S_ITS ---
PROCEDURE: XR KUB INDICATIONS: Renal/ureter stones TECHNIQUE: One view of the abdomen acquired. COMPARISON: [facility], CT, CT KIDNEY URETER BLADDER (KUB), 08/24/2019, 9:47. [facility], CR, XR KUB, 10/01/2019, 8:09. [facility], CR, XR KUB, 08/16/2019, 8:54. FINDINGS: Surgical changes and devices: None. Bowel: Scattered bowel gas. No dilated loops of bowel seen. Soft tissues: Small calcification or calcifications projecting over the inferior aspect of the right kidney are not significantly changed. No obvious calcification in the region of the right ureter. No suspicious abdominal calcifications. Visualized solid organ contours appear normal in size. Bones: No suspicious bony lesions. IMPRESSION: Stable small right kidney stones. If clinically indicated consider CT KUB for further evaluation. Dictated by: Alexander Monsalve M.D. on 09/19/2020 at 14:25 Approved by: Alexander Monsalve M.D. on 09/19/2020 at 14:28
== END ==
PROVIDERS: PCP Family Medicine; Referring Provider Specialist; Visit Provider Specialist
DX: N20.0 Calculus of kidney (principal); Z87.442 Personal history of urinary calculi
CPT/HCPCS: 74018

== ENCOUNTER → 2021-06-07 10:37 | Outpatient (CLI) | payer MEDICARE, BC, SELFPAY ==
[2021-06-07 11:58] LABS: Add Manual Diff / Slide Review NO; Basophils Absolute Auto 0 /uL (0-100); Basophils Percent Auto 0.4 % (0-2); Eosinophils Absolute Auto 0 /uL (0-450); Eosinophils Percent Auto 0.5 % (2-4); Hematocrit 38.1 % (36-46); Lymphocytes Absolute Auto 1400 /uL (1100-4500); Lymphocytes Percent Auto 29.3 % (25-40); Mean Corpuscular HGB Conc 34.1 % (30-36); Mean Corpuscular Hemoglobin 33.2 PG (26-34); Mean Corpuscular Volume 97.3 fL (80-100); Monocytes Absolute Auto 500 /uL (0-900); Monocytes Percent Auto 10.9 % (3-14); Neutrophils Absolute Auto 2900 /uL (1500-7000); Neutrophils Percent Auto 58.9 % (50-75); Platelet Count 247 X10^3/uL (150-400); Red Blood Cell Count 3.91 X10^6/uL (4.0-5.2); Red Cell Distribution Width 12.8 % (11.6-14.8); White Blood Cell Count 4.9 X10^3/uL (4.5-11.0)
[2021-06-07 12:26] LABS: Alanine Aminotransferase 17 IU/L (<35); Albumin 4.5 g/dL (3.5-5.0); Albumin Globulin Ratio 1.4 (1.0-2.8); Alkaline Phosphatase 59 U/L (38-126); Aspartate Aminotransferase 32 IU/L (14-36); BUN Creatinine Ratio 20.2 (6-22); Bilirubin Total 1.2 mg/dL (0.2-1.3); Blood Urea Nitrogen 17 mg/dL (7-17); Calcium 9.3 mg/dL (8.4-10.2); Carbon Dioxide 32 mmol/L (22-32); Chloride 99 mmol/L (98-107); Estimated Glomerular Filt Rate > 60.0 mL/min (>60); Globulin 3.3 g/dL (1.7-4.1); Glucose 93 mg/dL (80-110); HEMOLYSIS < 15 (0-50); Potassium 3.9 mmol/L (3.4-5.1); Sodium 137 mmol/L (137-145); Total Protein 7.8 g/dL (6.3-8.2)
[2021-06-07 13:01] LABS: Ferritin 60 ng/mL (11-264)
[2021-06-07 13:15] LABS: Vitamin B12 > 1000 pg/mL (239-931)
[2021-06-08 12:02] LABS: Fecal Immunochemical Test Negative (Negative)
== END ==
PROVIDERS: PCP Family Medicine; Referring Provider Family Medicine; Visit Provider Family Medicine
DX: G25.81 Restless legs syndrome (principal); Z12.11 Encounter for screening for malignant neoplasm of colon; G62.9 Polyneuropathy, unspecified
CPT/HCPCS: 36415; 80053; 82274; 82607; 82728; 85025

== ENCOUNTER → 2021-07-05 13:00 | Outpatient (CLI) | payer MEDICARE, BC, SELFPAY ==
--- NOTE | 2021-07-05 | DI.MRI.S_ITS ---
PROCEDURE: MR LUMBAR SPINE WO CON INDICATIONS: Low back pain, unspecified TECHNIQUE: Noncontrast sagittal T1 spin echo and T2 fast echo, sagittal STIR, and T2 fast spin echo through the lumbar spine. In cases with scoliosis, additional coronal T2 fast spin echo may be performed. COMPARISON: [facility], CT, CT KIDNEY URETER BLADDER (KUB), 08/24/2019, 9:47. [facility], CR, XR LUMBAR SPINE WITH OBLIQUES PLUS FLEXION EXTENSION, 06/19/2021, 9:43. FINDINGS: Image quality: Excellent. Alignment and Curvature: Mild dextroconvex scoliotic curvature is seen. No focal AP alignment abnormality is seen. Bone Marrow: Marrow is of normal overall signal. No acute vertebral body compression fractures. Spinal Cord: Conus medullaris terminates at the L1 level. Visualized cord demonstrates normal signal and size. Paraspinous Soft Tissues: No paravertebral masses. T12-L1: Normal appearance. L1-L2: Within normal limits. L2-L3: The disc height is well-preserved. Loss of disc signal is seen at this level. Mild facet joint hypertrophy is seen. No significant neural foraminal or central canal narrowing can be seen. L3-L4: Moderate loss of disc height is seen. Loss of disc signal is seen. Mild to moderate disc bulge is seen, which is eccentric to the left. Mild facet joint hypertrophy is seen. There is mild left-sided and no right-sided neural foraminal narrowing. No significant central canal narrowing is seen. L4-L5: Moderate loss of disc height is seen. Loss of disc signal is seen. Moderate disc bulge is seen, which is eccentric to right. There is a superimposed central disc protrusion. Mild facet joint hypertrophy is seen. Mild bilateral neural foraminal narrowing is seen. Minimal central canal narrowing is seen. L5-S1: At least moderate loss of disc height and disc signal can be seen. Reactive marrow endplate changes are seen which are hypointense on T1-weighted imaging and hyperintense on T2 weighted imaging, which is most consistent with edema (Modic type I changes). Mild to moderate disc bulge is seen. Mild facet joint hypertrophy is seen. Minimal bilateral neural foraminal narrowing can be seen. No significant central canal narrowing is seen. Incidental note is made of a presumed perineural cyst (Tarlov's cyst) at the S2 level. IMPRESSION: Focal lower lumbar spine degenerative changes are seen. Mild dextroconvex scoliotic curvature is seen. Dictated by: Michael Mccarty M.D. on 07/05/2021 at 16:30 Approved by: Michael Mccarty M.D. on 07/05/2021 at 16:34
== END ==
PROVIDERS: PCP Family Medicine; Referring Provider Physical Medicine & Rehabilitation Pain Medicine; Visit Provider Physical Medicine & Rehabilitation Pain Medicine
DX: M47.816 Spondylosis without myelopathy or radiculopathy, lumbar region (principal); M47.817 Spondylosis without myelopathy or radiculopathy, lumbosacral region; M41.86 Other forms of scoliosis, lumbar region; M54.50 Low back pain, unspecified
CPT/HCPCS: 72148

== ENCOUNTER → 2021-09-26 09:53 | Outpatient (CLI) | payer MEDICARE, BC, SELFPAY ==
--- NOTE | 2021-09-26 09:55 | DI.MG.S_ITS ---
BILATERAL DIGITAL SCREENING MAMMOGRAM 3D/2D WITH CAD: 09/26/2021 CLINICAL: Routine screening. Family history of breast cancer. Comparison is made to exams dated: 02/07/2020 mammogram, 09/25/2017 mammogram, and 09/13/2015 mammogram - [facility]. The tissue of both breasts is heterogeneously dense. This may lower the sensitivity of mammography. Current study was also evaluated with a Computer Aided Detection (CAD) system. No significant masses, calcifications, or other findings are seen in either breast. There has been no significant interval change. IMPRESSION: NEGATIVE There is no mammographic evidence of malignancy. A 1 year screening mammogram is recommended. This exam was interpreted at Station ID: [id number]. NOTE: For mammograms, a report in lay terms will be sent to the patient. Approximately 15% of breast malignancies will not be visualized mammographically. In the management of a palpable breast mass, a negative mammogram must not discourage biopsy of a clinically suspicious lesion. Electronically Signed By: Fredy Ferrer acr/shanice:09/26/2021 10:58:25 letter sent: Normal Exam ACR BI-RADS Category 1: Negative 3341F
== END ==
PROVIDERS: PCP Family Medicine; Referring Provider Family Medicine; Visit Provider Family Medicine
DX: M81.0 Age-related osteoporosis without current pathological fracture (principal); Z12.31 Encounter for screening mammogram for malignant neoplasm of breast; Z80.3 Family history of malignant neoplasm of breast; M85.89 Other specified disorders of bone density and structure, multiple sites
CPT/HCPCS: 77063; 77067; 77080

== ENCOUNTER → 2022-06-14 10:38 | Outpatient (CLI) | payer MEDICARE, BC, SELFPAY ==
[2022-06-14 11:44] LABS: Add Manual Diff / Slide Review NO; Basophils Absolute Auto 0 /uL (0-100); Basophils Percent Auto 0.8 % (0-2); Eosinophils Absolute Auto 0 /uL (0-450); Eosinophils Percent Auto 0.5 % (2-4); Hemoglobin 12.4 g/dL (12.0-16.0); Lymphocytes Absolute Auto 1400 /uL (1100-4500); Lymphocytes Percent Auto 32.2 % (25-40); Mean Corpuscular HGB Conc 33.7 % (30-36); Mean Corpuscular Hemoglobin 32.6 PG (26-34); Mean Corpuscular Volume 96.7 fL (80-100); Monocytes Absolute Auto 500 /uL (0-900); Monocytes Percent Auto 10.7 % (3-14); Neutrophils Absolute Auto 2500 /uL (1500-7000); Neutrophils Percent Auto 55.8 % (50-75); Platelet Count 268 X10^3/uL (150-400); Red Blood Cell Count 3.82 X10^6/uL (4.0-5.2); Red Cell Distribution Width 12.9 % (11.6-14.8); White Blood Cell Count 4.4 X10^3/uL (4.5-11.0)
[2022-06-14 12:36] LABS: Alanine Aminotransferase 18 IU/L (<35); Albumin Globulin Ratio 1.2 (1.0-2.8); Alkaline Phosphatase 70 U/L (38-126); Aspartate Aminotransferase 28 IU/L (14-36); BUN Creatinine Ratio 21.3 (6-22); Bilirubin Total 1.5 mg/dL (0.2-1.3); Blood Urea Nitrogen 16 mg/dL (7-17); Calcium 8.8 mg/dL (8.4-10.2); Carbon Dioxide 34 mmol/L (22-32); Chloride 97 mmol/L (98-107); Cholesterol 195 mg/dL (140-199); Estimated Glomerular Filt Rate > 60 mL/min (>60); Globulin 3.4 g/dL (1.7-4.1); Glucose 89 mg/dL (80-110); HDL Cholesterol 65 mg/dL (40-60); HEMOLYSIS < 15 (0-50); LDL Cholesterol Calculated 116 mg/dL (<100); Potassium 3.8 mmol/L (3.4-5.1); Sodium 136 mmol/L (137-145); Total Protein 7.4 g/dL (6.3-8.2); Triglycerides 69 mg/dL (35-150)
== END ==
PROVIDERS: PCP Family Medicine; Referring Provider Family Medicine; Visit Provider Family Medicine
DX: R63.4 Abnormal weight loss (principal); Z13.220 Encounter for screening for lipoid disorders
CPT/HCPCS: 36415; 80053; 80061; 84443; 85025

== ENCOUNTER → 2022-10-22 08:01 | Outpatient (CLI) | payer MEDICARE, BC, SELFPAY ==
[2022-10-22 10:31] LABS: Vitamin D 25 Hydroxy (D3) 79.5 ng/mL (30.0-100.0)
[2022-10-22 11:08] LABS: Folate 18.7 ng/mL (2.76-20.0); Vitamin B12 999 pg/mL (239-931)
== END ==
PROVIDERS: Referring Provider Psychiatry & Neurology Neurology; Visit Provider Psychiatry & Neurology Neurology
DX: E55.9 Vitamin D deficiency, unspecified (principal); R53.83 Other fatigue
CPT/HCPCS: 36415; 82306; 82607; 82746

== ENCOUNTER 2022-10-25 07:23 | Inpatient (IN) | payer MEDICARE, BC, SELFPAY ==
[2022-10-25] VITALS (23 sets, daily range): BP systolic 92–136; BP diastolic 41–90; PULSE 48–84; RESP 10–19; TEMP 36–36.9; O2SAT 92–100; BMI 19.0
--- NOTE | 2022-10-25 | DI.RAD.S_ITS ---
PROCEDURE: XR ABDOMEN MIN 2V INDICATIONS: colonoscopy perforation TECHNIQUE: 2 views of the abdomen were acquired. COMPARISON: None. FINDINGS: Surgical changes and devices: None. Bowel: Free air is seen in the nondependent portion of the pelvis on lateral decubitus views. The bowel gas pattern is normal. Soft tissues: No masses; visualized solid organ contours appear normal in size. No suspicious abdominal calcifications. Bones: No suspicious bony abnormalities. IMPRESSION: Free air within the pollicis suspicious for bowel perforation as clinically suspected. Findings were discussed with the Kelly of Dr. Mason's office by telephone on 10/25/2022 at 9:42 AM. Approved by: Milton Schaffer M.D. on 10/25/2022 at 9:42
[2022-10-25] MEDS: LACTATED RINGERS 1,000 ML 125 ML IV (07:50)
--- NOTE | 2022-10-25 08:41 | PM.HP.1 ---
History of Present Illness History of Present Illness Date Patient Seen: 10/25/22 Time Patient Seen: 08:41 Chief complaint: [facility] Narrative: 72-year-old female presents today for a screening colonoscopy. She has a history of colon polyps. She has no family history of colon cancer. No concerning symptoms although she does endorse some difficulty with alternating diarrhea constipation. Her last colonoscopy was in 2019 the report is available and was reviewed. Otherwise she has no questions or concerns and would like to proceed today. [facility] Medical History (Updated 10/25/22 @ 08:42 by Trinidad Mason MD) Acne (~1964) Actinic keratosis (~2014) Anxiety (~1964) Arthritis Chicken pox (~1956) Chronic back pain (~1984) Chronic cough Depression (~1964) Foot pain Hemorrhoid (~1984) Kidney stones (~2012) Measles (~1954) Mitral valve insufficiency (~2005) Mumps (~1958) Osteoarthritis (~2012) Osteoporosis Right renal stone Seasonal allergies Seborrheic dermatitis (~2013) Sessile serrated polyp of colon Shoulder pain (~2011) Skin cancer Skin cancer, basal cell (~2004) Vision disorder Surgical History Anesthesia History of colonoscopy History of removal of cyst Hx of cystoscopy (2012) Status post appendectomy (05/03/07) Status post Mohs surgery Family History Father Prostate cancer Grandfather Heart disease Mother Age: 98 Uterine cancer Stroke Breast cancer Congestive heart failure Diabetes mellitus Hypertension High cholesterol History of fracture of both hips Sister Age: 67 Stress Grandmother No problems noted. Grandfather Cancer Grandmother Heart disease Social History marital status: number of children: 2 household members: spouse lives independently: Yes education level: college occupational status: other Smoking Status: Never smoker alcohol intake: current substance use type: does not use Meds Home Medications and Allergies Home Medications Medication Instructions Recorded Confirmed Type cholecalciferol (vitamin D3) 50 125 mcg PO DAILY 10/05/20 10/25/22 History mcg (2,000 unit) capsule magnesium 250 mg tablet 250 mg PO DAILY 10/05/20 06/14/22 History mecobalamin (vitamin B12) 1,000 1,000 mcg PO DAILY 10/05/20 06/14/22 History mcg chewable tablet vitamin K2 100 mcg capsule 100 mcg PO DAILY 10/05/20 06/14/22 History zinc sulfate 50 mg zinc (220 mg) 50 mg PO DAILY 10/05/20 06/14/22 History capsule (Orazinc) potassium citrate 5 mEq (540 mg) See Rx Instructions .Route 05/27/22 06/14/22 Rx tablet,extended release .COMPLEX #180 tabs sodium,potassium,mag sulfates 17.5 See Rx Instructions PO .COMPLEX 09/02/22 Rx gram-3.13 gram-1.6 gram oral soln #354 mL (Suprep Bowel Prep Kit) hydrochlorothiazide 12.5 mg capsule 12.5 mg PO DAILY #90 caps 10/18/22 Rx Allergies Allergy/AdvReac Type Severity Reaction Status Date / Time erythromycin base AdvReac Unknown GI UPSET Verified 06/14/22 09:54 [ERYTHROMYCIN BASE] Exam Vital Signs (past 8 hours): - 10/25/22 07:30 Temperature 97.7 F Pulse Rate 68 Respiratory Rate 17 Blood Pressure 116/61 Pulse Oximetry 99 Oxygen Delivery Method Room Air Oxygen Delivery Method Room Air Const General: cooperative, healthy appearing and comfortable [facility] Head: normal to inspection Eyes General: appearance normal, both eyes and all related structures Resp Effort & Inspection: normal respiratory effort and able to speak in complete sentences Cardio Pulses: radial pulses present GI Palpation: soft and No tender Assessment & Plan Assessment and plan (1) Sessile serrated polyp of colon: Status: Acute (2) Colon cancer screening: Status: Acute Plan Presents today for screening colonoscopy I discussed the risks benefits and alternatives including but not limited to perforation of the colon and an incomplete exam she fully understands these risks and would like to proceed.
--- NOTE | 2022-10-25 09:22 | P.OP.COLON_ITS ---
Operative Date/Time/Diagnoses Date of procedure: 10/25/22 Time of procedure: 09:22 Pre-op diagnosis: Colon cancer screening history of polyps Post-op diagnosis: other (Perforation of colon) Procedure & Clinicians Study performed: Sigmoidoscopy Same procedure as scheduled: No Indications: Colon cancer screening Surgeon: Trinidad Mason Procedure Notes Procedure in detail: Patient was taken to the endoscopy suite and placed in a left lateral decubitus position. A time-out was performed. With the help of anesthesiologist conscious sedation was induced and monitored throughout the case. A digital rectal exam was performed there were left lateral external hemorrhoids visible, and there were no masses or strictures. The colonoscope was introduced into the anal canal and advanced. During the course of manipulating the scope through th e sigmoid colon. A sudden pressure change was felt, a very minimal amount of pressure was being applied during the course of the colonoscopy but suddenly the abdominal cavity was visible on the colonoscope. This was recognized almost instantly, and suction was applied gently as the scope was withdrawn promptly. The patient gave no indication of discomfort or pain and went in a comfortable condition to the postoperative care unit Specimen(s): none sent Complications: other (Perforation) Post-procedure Plan for aftercare: Patient will be admitted to [facility] immediately. She will be kept NPO with IV fluids and pain control as needed. IV Zosyn will be started. I will start by obtaining a plain x-ray I do not anticipate that imaging will add much at this time to decision making regarding her care. The main indicator will be abdominal pain. I will follow abdominal exams, vital signs and laboratory values in the next 24 hours and she will be very closely monitored. She had a good prep and so I am hopeful that this perforation can be managed non operati vely. I discussed the above complication and plan with her Bill on the phone just now. He verbalized understanding his questions were answered.
--- NOTE | 2022-10-25 10:35 | PC.NURSE ---
Day shift: Pt in room from PACU at approx 1035. She is A&Ox4. Spouse at bedside for support. Reports ABD gas pain. Does not want any pain meds at this time. Denies any nausea. Oriented to room and call light. Call light in reach.
[2022-10-25] MEDS: PIPERACILLIN/TAZO 3.375 GM in SODIUM CHLORIDE 0.9% 100 ML IV ×2 (11:14→17:47)
[2022-10-25] MEDS: SODIUM CHLORIDE 0.9% 1,000 ML 100 ML IV (11:14)
[2022-10-25] MEDS: ACETAMINOPHEN 325 MG TABLET 975 MG PO ×2 (11:14→17:47)
--- NOTE | 2022-10-25 12:24 | PC.NURSE ---
Day shift: To OR with 2 PACU nurses at 1215. Pt called her on the phone to let him know.
[2022-10-25] MEDS: LACTATED RINGERS 1,000 ML 42 ML IV ×2 (12:38→14:44)
--- NOTE | 2022-10-25 12:48 | P.HP_ITS ---
History of Present Illness History of Present Illness Date Patient Seen: 10/25/22 Time Patient Seen: 12:48 Chief complaint: [facility] [place] Narrative: 72-year-old woman is undergoing a screening colonoscopy today and sustained a colonic perforation. Intra-abdominal content was visualized with the colonoscope during a tight turn. Abdominal x-ray demonstrates free air. Currently she is afebrile in minimal discomfort vital signs are all within normal limits. She has received Zosyn. Prior abdominal surgery includes open appendectomy. [facility] Medical History Acne (~1964) Actinic keratosis (~2014) Anxiety (~1964) Arthritis Chicken pox (~1956) Chronic back pain (~1984) Chronic cough Depression (~1964) Foot pain Hemorrhoid (~1984) Kidney stones (~2012) Measles (~1954) Mitral valve insufficiency (~2005) Mumps (~1958) Osteoarthritis (~2012) Osteoporosis Right renal stone Seasonal allergies Seborrheic dermatitis (~2013) Sessile serrated polyp of colon Shoulder pain (~2011) Skin cancer Skin cancer, basal cell (~2004) Vision disorder Surgical History Anesthesia History of colonoscopy History of removal of cyst Hx of cystoscopy (2012) Status post appendectomy (05/03/07) Status post Mohs surgery Family History Father Prostate cancer Grandfather Heart disease Mother Age: 98 Uterine cancer Stroke Breast cancer Congestive heart failure Diabetes mellitus Hypertension High cholesterol History of fracture of both hips Sister Age: 67 Stress Grandmother No problems noted. Grandfather Cancer Grandmother Heart disease Social History marital status: number of children: 2 household members: spouse lives independently: Yes education level: college occupational status: other Smoking Status: Never smoker alcohol intake: current substance use type: does not use Meds Home Medications and Allergies Home Medications Medication Instructions Recorded Confirmed Type cholecalciferol (vitamin D3) 50 125 mcg PO DAILY 10/05/20 10/25/22 History mcg (2,000 unit) capsule magnesium 250 mg tablet 250 mg PO DAILY 10/05/20 10/25/22 History mecobalamin (vitamin B12) 1,000 1,000 mcg PO DAILY 10/05/20 10/25/22 History mcg chewable tablet vitamin K2 100 mcg capsule 100 mcg PO DAILY 10/05/20 10/25/22 History zinc sulfate 50 mg zinc (220 mg) 50 mg PO DAILY 10/05/20 10/25/22 History capsule (Orazinc) potassium citrate 5 mEq (540 mg) See Rx Instructions .Route 05/27/22 10/25/22 Rx tablet,extended release .COMPLEX #180 tabs sodium,potassium,mag sulfates 17.5 See Rx Instructions PO .COMPLEX 09/02/22 Rx gram-3.13 gram-1.6 gram oral soln #354 mL (Suprep Bowel Prep Kit) hydrochlorothiazide 12.5 mg capsule 12.5 mg PO DAILY #90 caps 10/18/22 10/25/22 Rx melatonin 3 mg tablet 3 mg PO BEDTIME PRN Insomnia 10/25/22 10/25/22 History Allergies Allergy/AdvReac Type Severity Reaction Status Date / Time erythromycin base AdvReac Unknown GI UPSET Verified 06/14/22 09:54 [ERYTHROMYCIN BASE] Exam Vital Signs (past 8 hours): - 10/25/22 07:30 10/25/22 09:11 10/25/22 09:15 Temperature 97.7 F 97.6 F Pulse Rate 68 56 L 57 L Respiratory Rate 17 13 15 Blood Pressure 116/61 105/51 L 109/57 L Pulse Oximetry 99 99 99 Oxygen Delivery Method Room Air Room Air Room Air Oxygen Flow Rate 10/25/22 09:37 10/25/22 09:51 10/25/22 09:21 Temperature Pulse Rate 50 L 48 L 55 L Respiratory Rate 16 15 14 Blood Pressure 106/41 L 112/51 L 117/90 Pulse Oximetry 100 100 99 Oxygen Delivery Method Room Air Room Air Room Air Oxygen Flow Rate 10/25/22 09:26 10/25/22 10:10 10/25/22 10:30 Temperature 96.8 F L Pulse Rate 55 L 59 L 59 L Respiratory Rate 13 14 16 Blood Pressure 114/56 L 116/55 L 136/56 L Pulse Oximetry 100 99 100 Oxygen Delivery Method Room Air Room Air Oxygen Flow Rate 0 10/25/22 12:27 10/25/22 11:00 10/25/22 11:30 Temperature 97.6 F 96.9 F L 96.9 F L Pulse Rate 72 51 L 57 L Respiratory Rate 16 17 16 Blood Pressure 116/72 115/50 L 121/53 L Pulse Oximetry 98 100 100 Oxygen Delivery Method Room Air Oxygen Flow Rate 0 0 Oxygen Delivery Method Room Air Oxygen Flow Rate 0 Narrative Exam Narrative: General adult woman alert oriented no distress Chest nonlabored respiration Abdomen left lower quadrant tenderness no peritonitis Assessment & Plan Assessment and plan (1) Colon perforation: Status: Acute Assessment & Plan narrative: 72-year-old healthy woman who sustained a colonic perforation during colonoscopy today. I had a lengthy discussion with the patient and in regards to management. We discussed various options including conservative management with bowel rest and antibiotic therapy and surgical repair. My recommendation is for surgical repair and following discussion they elected to proceed. Operative risks include hemorrhage, infection, damage to surrounding structures, anastomotic leak. Questions have been answered they are in agreement with this plan she provides her written and verbal consent to proceed. Diagnostic laparoscopy, repair of colotomy, possible colectomy, possible exploratory laparotomy
[2022-10-25] MEDS: BUPIVACAINE 0.25% (PF) VIAL 30 ML INJ (13:50)
--- NOTE | 2022-10-25 14:04 | SUR.OPER ---
Lithotomy on padded OR bed. [place] Pad Positioner under torso. Head on pillow, arms padded and tucked at sides. Legs secured in padded yellow fins stirrups.
--- NOTE | 2022-10-25 15:35 | PM.OP.1 ---
Operative Date/Time/Diagnoses Date of procedure: 10/25/22 Time of procedure: 15:35 Pre-op diagnosis: Colonic perforation Post-op diagnosis: same Procedure & Clinicians Procedure: Diagnostic laparoscopy. Repair of colonic perforation Same procedure as scheduled: Yes Indications: 72-year-old woman with history of of abdominal surgery who underwent a screening colonoscopy today who sustained a perforation. After discussion with the patient and her they elect to proceed with diagnostic laparoscopy and repair of colotomy. Surgeon: Reza Sykes Senior Information Security Engineer: Trinidad Mason Anesthesia Type: General Operative Notes Findings: 2 cm full-thickness perforation of the sigmoid colon on the anti mesenteric surface.. Multiple adhesions between the sigmoid colon and the abdominal wall and the uterus observed Specimen(s): none sent Estimated Blood Loss (mL): 5 Procedure in detail: Patient was brought to the operating room placed supine on the table. Bilateral lower extremity compression devices were applied. She received 3.375 g of Zosyn. General anesthesia was induced and she was intubated with an endotracheal tube. She was then placed into lithotomy position and appropriately padded. Stevens catheter was sterilely placed. She was then prepped and draped in sterile condition. Time-out performed. An infraumbilical incision was made the fascia was grasped incised and the abdomen entered atraumatically. Pneumoperitoneum was established inspection of the abdomen was made. There was no succus within the abdomen air was within some of the colonic mesentery. 5 mm port was placed suprapubic and a 11 mm in the right lower quadrant. The sigmoid colon was inspected. There were adhesions between the sigmoid colon and the abdominal wall as well as adhesions between the sigmoid colon and the uterus which were divided using the LigaSure and I suspect these adhesions had tethered the sigmoid colon in place. The perforation was visualized and was approximately 2 cm in length full-thickness on the anti mesenteric surface of the colon. There was scant enteric content at the site of perforation. The colotomy was then closed with interrupted silk suture. A leak test was performed. The abdomen was filled with saline and colonoscope was placed into rectum, and with insufflation there was not evidence of leak. Hemostasis was checked. The abdomen was desufflated the umbilical fascia was closed with interrupted Vicryl suture in [id number] fashion. Skin was closed with Monocryl followed by application of Dermabond. Stevens catheter was removed at the end of procedure she was extubated and transferred to recovery in stable condition. Complications: none Post-operative Condition: stable Disposition: Acute Care
[2022-10-25 21:34] LABS: Add Manual Diff / Slide Review NO; Basophils Absolute Auto 0 /uL (0-100); Basophils Percent Auto 0.3 % (0-2); Eosinophils Absolute Auto 0 /uL (0-450); Hematocrit 36.8 % (36-46); Hemoglobin 12.4 g/dL (12.0-16.0); Lymphocytes Absolute Auto 300 /uL (1100-4500); Lymphocytes Percent Auto 1.7 % (25-40); Mean Corpuscular HGB Conc 33.8 % (30-36); Mean Corpuscular Hemoglobin 32.7 PG (26-34); Mean Corpuscular Volume 96.7 fL (80-100); Monocytes Absolute Auto 600 /uL (0-900); Monocytes Percent Auto 3.4 % (3-14); Neutrophils Absolute Auto 15400 /uL (1500-7000); Neutrophils Percent Auto 94.6 % (50-75); Platelet Count 215 X10^3/uL (150-400); Red Blood Cell Count 3.81 X10^6/uL (4.0-5.2); Red Cell Distribution Width 12.8 % (11.6-14.8); White Blood Cell Count 16.3 X10^3/uL (4.5-11.0)
[2022-10-25 21:41] LABS: Alanine Aminotransferase 20 IU/L (<35); Albumin 3.4 g/dL (3.5-5.0); Albumin Globulin Ratio 1.1 (1.0-2.8); Alkaline Phosphatase 52 U/L (38-126); Aspartate Aminotransferase 29 IU/L (14-36); BUN Creatinine Ratio 22.5 (6-22); Bilirubin Total 1.9 mg/dL (0.2-1.3); Blood Urea Nitrogen 16 mg/dL (7-17); Calcium 7.9 mg/dL (8.4-10.2); Carbon Dioxide 26 mmol/L (22-32); Chloride 103 mmol/L (98-107); Estimated Glomerular Filt Rate > 60 mL/min (>60); Globulin 3.2 g/dL (1.7-4.1); Glucose 129 mg/dL (80-110); HEMOLYSIS < 15 (0-50); Potassium 3.6 mmol/L (3.4-5.1); Sodium 134 mmol/L (137-145); Total Protein 6.6 g/dL (6.3-8.2)
[2022-10-25] MEDS: MELATONIN 3 MG TABLET PO (22:38)
[2022-10-25] MEDS: CELECOXIB 200 MG CAPSULE PO (22:38)
[2022-10-26] MEDS: PIPERACILLIN/TAZO 3.375 GM in SODIUM CHLORIDE 0.9% 100 ML IV ×2 (01:16→08:47)
[2022-10-26 02:34] VITALS: BP 92/39; PULSE 64; RESP 16; TEMP 36.5; O2SAT 98
[2022-10-26 05:28] LABS: Add Manual Diff / Slide Review NO; Basophils Absolute Auto 100 /uL (0-100); Basophils Percent Auto 0.8 % (0-2); Eosinophils Absolute Auto 0 /uL (0-450); Hematocrit 34.5 % (36-46); Hemoglobin 11.7 g/dL (12.0-16.0); Lymphocytes Absolute Auto 700 /uL (1100-4500); Mean Corpuscular HGB Conc 33.9 % (30-36); Mean Corpuscular Hemoglobin 32.6 PG (26-34); Mean Corpuscular Volume 96.1 fL (80-100); Monocytes Absolute Auto 800 /uL (0-900); Monocytes Percent Auto 4.4 % (3-14); Neutrophils Absolute Auto 15500 /uL (1500-7000); Neutrophils Percent Auto 90.8 % (50-75); Platelet Count 200 X10^3/uL (150-400); Red Cell Distribution Width 12.7 % (11.6-14.8)
[2022-10-26 05:46] LABS: BUN Creatinine Ratio 19.8 (6-22); Blood Urea Nitrogen 17 mg/dL (7-17); Carbon Dioxide 25 mmol/L (22-32); Chloride 102 mmol/L (98-107); Estimated Glomerular Filt Rate > 60 mL/min (>60); Glucose 116 mg/dL (80-110); HEMOLYSIS < 15 (0-50); Potassium 3.7 mmol/L (3.4-5.1); Sodium 134 mmol/L (137-145)
[2022-10-26] MEDS: ACETAMINOPHEN 325 MG TABLET 975 MG PO ×2 (06:23→14:42)
[2022-10-26 08:00] VITALS: BP 103/48; PULSE 69; RESP 17; TEMP 36.2; O2SAT 98
[2022-10-26] MEDS: CELECOXIB 200 MG CAPSULE PO ×2 (08:48→20:42)
[2022-10-26] MEDS: SODIUM CHLORIDE 0.9% FLUSH 10 ML IV ×2 (08:48→20:42)
--- NOTE | 2022-10-26 09:31 | CM.DANOTE ---
DCP: Case received, EMR reviewed and met with patient. Spouse, Flex, was at bedside. Introduced self and role. Was able to complete DCP assessment based upon information currently available. Patient is a 72 year old female who admitted yesterday morning to the care of the surgical team. PCP: Was Dr. Pritchard, unsure of the name of her new provider. Payer: confirmed: Medicare/BCBS Out of [facility]. Met with patient in her room. She was sitting up in bed, alert, pleasant. Confirmed that she resides here in [place] with her spouse. She is independent at her baseline. She did have Dr. Pritchard as her primary care provider, since she left, was assigned to someone, can't remember the name. She is still established at the clinic. P: DCP to continue to follow for any needs. Patient should be able to go home when deemed medically stable. Cat Mata RN/Buzzsaw Operator Discharge Planning/Care Management CM Discharge Assessment Start: 10/26/22 09:27 Freq: Status: Active Protocol: Document 10/26/22 09:27 (Rec: 10/26/22 09:31 [id number]) Discharge Planning Assessment Assigned [place] Mallow Dipper Cat Mata RN/Buzzsaw Operator Advance Directives? No Advance Directives on File No History Provided By Patient,Medical Record Prior Living Arrangements House Household Members spouse Type of transporation used prior to Drives own vehicle admit Independent with ADL's Yes Is patient alert and oriented? Yes Caregiver for Another No Barriers to Discharge No Discharge Plan Home Transportation Arrangement Spouse Referrals Initiated None needed Whiteboard Updated in Patient Room with Yes name and ext. # of Pecan Mallow Dipper Review Status In Process Next Review Type Continued Stay Review
--- NOTE | 2022-10-26 11:22 | P.PN_ITS ---
Subjective Subjective Date Patient Seen: 10/26/22 Time Patient Seen: 11:22 Interval history: No pain. Tolerating liquids. Ambulatory. Exam Vital Signs (past 8 hours): - 10/26/22 08:00 Temperature 97.2 F L Pulse Rate 69 Respiratory Rate 17 Blood Pressure 103/48 L Pulse Oximetry 98 Oxygen Flow Rate 0 Oxygen Delivery Method Room Air Oxygen Flow Rate 0 Narrative Exam Narrative: General adult woman alert oriented no acute distress Abdomen soft appropriately tender to palpation. Laparoscopic port incisions clean dry intact. Objective Labs 10/26/22 05:17 10/26/22 05:17 Labs: Laboratory Results - last 24 hr 10/25/22 10/25/22 10/26/22 21:23 21:23 05:17 WBC 16.3 H 17.0 H RBC 3.81 L 3.60 L Hgb 12.4 11.7 L Hct 36.8 34.5 L MCV 96.7 96.1 MCH 32.7 32.6 MCHC 33.8 33.9 RDW 12.8 12.7 Plt Count 215 200 Neut % (Auto) 94.6 H 90.8 H Lymph % (Auto) 1.7 L 4.0 L [place] % (Auto) 3.4 4.4 Eos % (Auto) 0.0 L 0.0 L Baso % (Auto) 0.3 0.8 Neut # (Auto) 94507 H 30265 H Lymph # (Auto) 300 L 700 L [place] # (Auto) 600 800 Eos # (Auto) 0 0 Baso # (Auto) 0 100 Sodium 134 L Potassium 3.6 Chloride 103 Carbon Dioxide 26 BUN 16 Creatinine 0.71 Estimated GFR > 60 BUN/Creatinine Ratio 22.5 H Glucose 129 H Calcium 7.9 L Total Bilirubin 1.9 H AST 29 ALT 20 Alkaline Phosphatase 52 Total Protein 6.6 Albumin 3.4 L Globulin 3.2 Albumin/Globulin Ratio 1.1 10/26/22 05:17 WBC RBC Hgb Hct MCV MCH MCHC RDW Plt Count Neut % (Auto) Lymph % (Auto) [place] % (Auto) Eos % (Auto) Baso % (Auto) Neut # (Auto) Lymph # (Auto) [place] # (Auto) Eos # (Auto) Baso # (Auto) Sodium 134 L Potassium 3.7 Chloride 102 Carbon Dioxide 25 BUN 17 Creatinine 0.86 Estimated GFR > 60 BUN/Creatinine Ratio 19.8 Glucose 116 H Calcium 8.0 L Total Bilirubin AST ALT Alkaline Phosphatase Total Protein Albumin Globulin Albumin/Globulin Ratio [facility] Medical History Acne (~1964) Actinic keratosis (~2014) Anxiety (~1964) Arthritis Chicken pox (~1956) Chronic back pain (~1984) Chronic cough Depression (~1964) Foot pain Hemorrhoid (~1984) Kidney stones (~2012) Measles (~1954) Mitral valve insufficiency (~2005) Mumps (~1958) Osteoarthritis (~2012) Osteoporosis Right renal stone Seasonal allergies Seborrheic dermatitis (~2013) Sessile serrated polyp of colon Shoulder pain (~2011) Skin cancer Skin cancer, basal cell (~2004) Vision disorder Surgical History Anesthesia History of colonoscopy History of removal of cyst Hx of cystoscopy (2012) Status post appendectomy (05/03/07) Status post Mohs surgery Family History Father Prostate cancer Grandfather Heart disease Mother Age: 98 Uterine cancer Stroke Breast cancer Congestive heart failure Diabetes mellitus Hypertension High cholesterol History of fracture of both hips Sister Age: 67 Stress Grandmother No problems noted. Grandfather Cancer Grandmother Heart disease Social History marital status: number of children: 2 household members: spouse lives independently: Yes education level: college occupational status: other Smoking Status: Never smoker alcohol intake: current substance use type: does not use Assessment & Plan Post-op Postoperative Procedures: Procedures Operation Date: 10/25/22 08:30 Actual Procedure Side Surgeon p Colonoscopy Trinidad Mason MD Operation Date: 10/25/22 13:30 Actual Procedure Side Surgeon p Diagnostic laparoscopy Reza Sykes MD Postoperative status narrative: 72-year-old woman postoperative day 1 status post diagnostic laparoscopy and repair of iatrogenic colotomy. She is doing well and recovering from her operation appropriately. -advance to full liquid diet and then as tolerated -discontinue IV Zosyn and switch to p.o. levofloxacin -leukocytosis noted however I suspect this is largely inflammatory as opposed to infectious and may be able to discharge home tomorrow if down trending. Quality VTE Deep Vein Thrombosis/Pulmonary Embolism Present on Admission: No
[2022-10-26] MEDS: levoFLOXacin 250 MG TABLET 750 MG PO (11:43)
[2022-10-26 16:00] VITALS: BP 95/49; PULSE 73; RESP 17; TEMP 36.2; O2SAT 99
[2022-10-26 19:30] VITALS: BP 95/44; PULSE 63; RESP 17; TEMP 36.5; O2SAT 98
[2022-10-26] MEDS: MELATONIN 3 MG TABLET PO (20:42)
[2022-10-27 06:01] VITALS: BP 120/56; PULSE 74; RESP 16; TEMP 36.4; O2SAT 97
[2022-10-27] MEDS: ACETAMINOPHEN 325 MG TABLET 975 MG PO (06:22)
[2022-10-27] MEDS: levoFLOXacin 250 MG TABLET 750 MG PO (06:23)
[2022-10-27 06:38] LABS: Add Manual Diff / Slide Review NO; Basophils Absolute Auto 0 /uL (0-100); Basophils Percent Auto 0.3 % (0-2); Eosinophils Absolute Auto 0 /uL (0-450); Eosinophils Percent Auto 0.2 % (2-4); Hematocrit 34.1 % (36-46); Hemoglobin 11.5 g/dL (12.0-16.0); Lymphocytes Absolute Auto 1600 /uL (1100-4500); Lymphocytes Percent Auto 13.9 % (25-40); Mean Corpuscular HGB Conc 33.7 % (30-36); Mean Corpuscular Hemoglobin 32.6 PG (26-34); Mean Corpuscular Volume 96.9 fL (80-100); Monocytes Absolute Auto 600 /uL (0-900); Monocytes Percent Auto 5.7 % (3-14); Neutrophils Absolute Auto 9000 /uL (1500-7000); Neutrophils Percent Auto 79.9 % (50-75); Platelet Count 215 X10^3/uL (150-400); Red Blood Cell Count 3.52 X10^6/uL (4.0-5.2); Red Cell Distribution Width 13.2 % (11.6-14.8); White Blood Cell Count 11.3 X10^3/uL (4.5-11.0)
[2022-10-27] MEDS: CELECOXIB 200 MG CAPSULE PO (09:01)
[2022-10-27 09:08] VITALS: BP 120/67; PULSE 70; RESP 16; TEMP 35.8; O2SAT 98
--- NOTE | 2022-10-27 10:58 | P.DS_ITS ---
History of Present Illness History of Present Illness Date Patient Seen: 10/27/22 Time Patient Seen: 11:56 Chief complaint: SDC Narrative: 72-year-old woman is undergoing a screening colonoscopy today and sustained a colonic perforation. Intra-abdominal content was visualized with the colonoscope during a tight turn. Abdominal x-ray demonstrates free air. Curr ently she is afebrile in minimal discomfort vital signs are all within normal limits. She has received Zosyn. Prior abdominal surgery includes open appendectomy. Discharge Providers Provider Discharge Date: 10/27/22 Discharge provider: Reza Sykes MD Summary Hospital Course Discharge Diagnosis: Colonic perforation Status post diagnostic laparoscopy Hospital Course: Patient underwent a diagnostic laparoscopy with laparoscopic repair sigmoid colotomy on October 25. She tolerated the operation well. She was maintained on IV antibiotic therapy and her diet was gradually advanced. At discharge she is tolerating a regular diet her antibiotics have been transitioned to p.o. levofloxacin and her leukocytosis has resolved. Her pain is well controlled with Tylenol only she is ambulatory in stable for discharge. Status at Discharge Cognitive/behavioral status at discharge: oriented Functional status at discharge: independent ambulation Overall status at discharge: patient is progressing back to baseline Time Spent with Patient Time spent: Greater than 30 minutes Exam Vital Signs (past 8 hours): - 10/27/22 06:01 10/27/22 09:08 Temperature 97.6 F 96.5 F L Pulse Rate 74 70 Respiratory Rate 16 16 Blood Pressure 120/56 L 120/67 Pulse Oximetry 97 98 Oxygen Flow Rate 0 0 Oxygen Delivery Method Room Air Oxygen Flow Rate 0 Narrative Exam Narrative: General adult woman alert oriented no acute distress Chest nonlabored respiration Abdomen soft appropriately tender to palpation. Objective Labs 10/27/22 06:09 10/26/22 05:17 Labs: Laboratory Results - last 24 hr 10/27/22 06:09 WBC 11.3 H RBC 3.52 L Hgb 11.5 L Hct 34.1 L MCV 96.9 MCH 32.6 MCHC 33.7 RDW 13.2 Plt Count 215 Neut % (Auto) 79.9 H Lymph % (Auto) 13.9 L [place] % (Auto) 5.7 Eos % (Auto) 0.2 L Baso % (Auto) 0.3 Neut # (Auto) 9000 H Lymph # (Auto) 1600 [place] # (Auto) 600 Eos # (Auto) 0 Baso # (Auto) 0 PFSH Medical History Acne (~1964) Actinic keratosis (~2014) Anxiety (~1964) Arthritis Chicken pox (~1956) Chronic back pain (~1984) Chronic cough Depression (~1964) Foot pain Hemorrhoid (~1984) Kidney stones (~2012) Measles (~1954) Mitral valve insufficiency (~2005) Mumps (~1958) Osteoarthritis (~2012) Osteoporosis Right renal stone Seasonal allergies Seborrheic dermatitis (~2013) Sessile serrated polyp of colon Shoulder pain (~2011) Skin cancer Skin cancer, basal cell (~2004) Vision disorder Surgical History Anesthesia History of colonoscopy History of removal of cyst Hx of cystoscopy (2012) Status post appendectomy (05/03/07) Status post Mohs surgery Family History Father Prostate cancer Grandfather Heart disease Mother Age: 98 Uterine cancer Stroke Breast cancer Congestive heart failure Diabetes mellitus Hypertension High cholesterol History of fracture of both hips Sister Age: 67 Stress Grandmother No problems noted. Grandfather Cancer Grandmother Heart disease Social History marital status: number of children: 2 household members: spouse lives independently: Yes education level: college occupational status: other Smoking Status: Never smoker alcohol intake: current substance use type: does not use Discharge Plan Discharge Plan Patient Disposition: Home Provider Discharge Comment: No lifting >20 lbs x 2 weeks Diet as tolerated Ok to shower but do not submerge wounds until seen in follow up Discharge orders & Medications Discharge Orders: Discharge (Order); Ordered 10/27/22 Ordered By: Reza Sykes Prescriptions: New levofloxacin 500 mg tablet 500 mg PO DAILY Qty: 5 0RF Continued potassium citrate 5 mEq (540 mg) tablet extended release See Rx Instructions .ROUTE .COMPLEX Qty: 180 3RF Dose Instruction: TAKE 1 TABLET BY MOUTH TWICE DAILY Rx Instructions: TAKE 1 TABLET BY MOUTH TWICE DAILY hydrochlorothiazide 12.5 mg capsule 12.5 mg PO DAILY Qty: 90 1RF melatonin 3 mg Tablet 3 mg PO BEDTIME PRN (Reason: Insomnia) cholecalciferol (vitamin D3) 50 mcg (2,000 unit) capsule 125 mcg PO DAILY magnesium 250 mg tablet 250 mg PO DAILY vitamin K2 100 mcg capsule 100 mcg PO DAILY mecobalamin (vitamin B12) 1,000 mcg tablet,chewable 1,000 mcg PO DAILY zinc sulfate [Orazinc] 50 mg zinc (220 mg) capsule 50 mg PO DAILY Discontinued sodium,potassium,mag sulfates [Suprep Bowel Prep Kit] 17.5-3.13-1.6 gram recon soln See Rx Instructions PO .COMPLEX Qty: 354 0RF Rx Instructions: take as directed by Physician Diet/Activity/Treatments Diet: Diet as Tolerated Skin/Wound/Dressing Care Report to your healthcare provider any signs of infection, such as:: chills, fever, increased pain, unusual drainage and unusual redness Visit Report/Discharge Packet Instructions: Levofloxacin, Colon Perforation Stand Alone Forms: Patient Portal/API Discharge Data Attending Provider: Trinidad Mason VTE Deep Vein Thrombosis/Pulmonary Embolism Present on Admission: No
--- NOTE | 2022-10-27 13:06 | PC.NURSE ---
Day shift: Discharge instructions gone over by SARY Villa. PIV removed prior to discharge. All belongings with patient. Patient's and CT Kayla walked patient to exit.
== END 2022-10-27 13:09 | disposition home or self-care (01) | DRG 909 ==
LOC: ENDO 07:24 → AC 10:57
PROVIDERS: Surgery; Admitting Provider Surgery; Referring Provider Surgery; Visit Provider Surgery
PROC: 0DJD8ZZ Inspection of Lower Intestinal Tract, Via Natural or Artificial Opening Endoscopic (ICD-10-PCS; CPT 45378; principal; 2022-10-25 08:30)
PROC: 0DQN0ZZ Repair Sigmoid Colon, Open Approach (ICD-10-PCS; CPT 49320; principal; 2022-10-25 13:30)
DX: K91.71 Accidental puncture and laceration of a digestive system organ or structure during a digestive system procedure (principal); Y65.8 Other specified misadventures during surgical and medical care; Z12.11 Encounter for screening for malignant neoplasm of colon; Z86.010 Personal history of colon polyps; R00.1 Bradycardia, unspecified
CPT/HCPCS: 36415; 74019; 80048; 80053; 82306; 82607; 82746; 85025; 93005; 93010; J1100; J1170; J2250; J2405; J2543; J2704; J3010; J3490

== ENCOUNTER → 2023-02-26 14:02 | Outpatient (CLI) | payer MEDICARE, BC, SELFPAY ==
[2022-10-25 16:08] VITALS: BMI 19.0
[2023-02-26 14:41] LABS: Hematocrit 39.5 % (36-46); Hemoglobin 13.2 g/dL (12.0-16.0); Mean Corpuscular HGB Conc 33.5 % (30-36); Mean Corpuscular Hemoglobin 32.5 PG (26-34); Platelet Count 252 X10^3/uL (150-400); Red Blood Cell Count 4.07 X10^6/uL (4.0-5.2); Red Cell Distribution Width 13.3 % (11.6-14.8); White Blood Cell Count 5.9 X10^3/uL (4.5-11.0)
[2023-02-26 14:51] LABS: Alanine Aminotransferase 19 IU/L (<35); Albumin 4.2 g/dL (3.5-5.0); Albumin Globulin Ratio 1.2 (1.0-2.8); Alkaline Phosphatase 63 U/L (38-126); Aspartate Aminotransferase 30 IU/L (14-36); BUN Creatinine Ratio 25.7 (6-22); Bilirubin Total 1.3 mg/dL (0.2-1.3); Blood Urea Nitrogen 19 mg/dL (7-17); Calcium 9.9 mg/dL (8.4-10.2); Carbon Dioxide 33 mmol/L (22-32); Chloride 98 mmol/L (98-107); Estimated Glomerular Filt Rate > 60 mL/min (>60); Globulin 3.5 g/dL (1.7-4.1); Glucose 117 mg/dL (80-110); HEMOLYSIS < 15 (0-50); Magnesium 2.1 mg/dL (1.6-2.3); Potassium 3.7 mmol/L (3.4-5.1); Sodium 137 mmol/L (137-145); Total Protein 7.7 g/dL (6.3-8.2)
[2023-02-26 15:21] LABS: Thyroid Stimulating Hormone 2.79 uIU/mL (0.47-4.68)
== END ==
PROVIDERS: Referring Provider Nurse Practitioner; Visit Provider Nurse Practitioner
DX: R00.2 Palpitations (principal)
CPT/HCPCS: 36415; 80053; 83735; 84443; 85027

== ENCOUNTER → 2023-12-15 07:01 | Outpatient (CLI) | payer MEDICARE, BC, SELFPAY ==
[2022-10-25 16:08] VITALS: BMI 19.0
[2023-12-15 09:19] LABS: HEMOLYSIS < 15 (0-50); Iron 69 ug/dL (37-170)
[2023-12-15 09:32] LABS: Transferrin 244 mg/dL (206-381)
[2023-12-15 09:33] LABS: Percent Iron Saturation 23 % (15-50); Total Iron Binding Capacity 297 ug/dL (265-497)
[2023-12-15 09:56] LABS: Ferritin 30 ng/mL (11-264)
[2023-12-16 13:11] LABS: Fecal Immunochemical Test Negative (Negative)
== END ==
PROVIDERS: PCP Family Medicine; Referring Provider Nurse Practitioner; Visit Provider Nurse Practitioner
DX: E83.10 Disorder of iron metabolism, unspecified (principal); R25.8 Other abnormal involuntary movements; Z12.11 Encounter for screening for malignant neoplasm of colon
CPT/HCPCS: 36415; 82274; 82728; 83540; 83550

== ENCOUNTER → 2024-07-14 14:11 | Outpatient (CLI) | payer MEDICARE, BC, SELFPAY ==
[2022-10-25 16:08] VITALS: BMI 19.0
--- NOTE | 2024-07-14 14:14 | DI.RAD.S_ITS ---
PROCEDURE: XR DEXA AXIAL SKELETON INDICATIONS: Screen age-related osteoporosis COMPARISON: [facility], , XR DEXA AXIAL SKELETON, 09/26/2021, 10:07. FINDINGS: Lumbar Spine: Bone mineral density is 0.765 g/cm2, T score -2.6, previously -0.1. Left Femoral Neck: Bone mineral density : 0.580 g/cm2, T score -2.4. Left Hip: Bone mineral density 0.701 g/cm2, T score -2.0, previously -0.3. Fracture Risk Calculation (when applicable): 10-year fracture risk of a major osteoporotic fracture 24 percent and of a hip fracture 14 percent. (T score greater or equal to -1.0 to: NORMAL) (T score from -1.1 to -2.4: OSTEOPENIA) (T score less than or equal to -2.5: OSTEOPOROSIS) IMPRESSION: Lumbar spine osteoporosis Follow-up guidelines as follows: Osteoporosis: Consider a repeat DEXA and Vertebral Fracture Assessment (VFA) exam in 2 years or sooner if medically necessary, to reassess this patient's status. Osteopenia: Consider a repeat DEXA in 2-3 years to reassess this patient's status, or if there is a new clinical indication. Normal: Consider a repeat DEXA in 5 years or sooner, or if there is a new clinical indication. All treatment decisions require clinical judgment and consideration of individual patient factors, including patient preferences, comorbidities, previous drug use, risk factors not captured in the FRAX model (e.g., frailty, falls, vitamin D deficiency, increased bone turnover, interval significant decline in bone density ) and possible under- or over-estimation of fracture risk by FRAX. In addition, the NOF Guide recommends that FDA-approved medical therapies be considered in postmenopausal women and men age >= 50 years with a: * Hip or vertebral (clinical or morphometric) fracture * T-score of <=-2.5 at the spine or hip * Ten-year fracture probability by FRAX of >= 3% for hip fracture or >=20% for major osteoporotic fracture. Approved by: David Vicente M.D. on 07/15/2024 at 10:42
--- NOTE | 2024-07-14 14:14 | DI.MG.S_ITS ---
MM screening mammo BI: 07/14/2024. BI-RADS: 1 CLINICAL: 74-year old female for bilateral screening mammogram. Tyrer-Cuzick lifetime risk of 8.2%. Current reported family history of breast cancer: mother. The patient had a prior left breast biopsy. PRIOR EXAMS 09/26/2021, 02/07/2020, 09/25/2017, 09/13/2015. MAMMOGRAPHY TECHNIQUE: 2D and 3D (tomosynthesis) digital mammographic views obtained, with additional images as needed for full coverage. Current study was also evaluated with a Computer Aided Detection (CAD) system. DENSITY C. The breasts are heterogeneously dense, which may obscure small masses. MAMMOGRAPHY FINDINGS Bilateral: No suspicious mass, asymmetry, microcalcification, or other abnormality seen. No significant change from comparison. IMPRESSION: * No evidence of malignancy. RECOMMENDATIONS Bilateral * Annual screening mammography. OVERALL ASSESSMENT CATEGORY BI-RADS-1: Negative. The [employer] recommends annual screening mammography beginning at age 40 for women with average risk of breast cancer. ELECTRONICALLY SIGNED: Milton Schaffer M.D. on 07/14/2024 at 03:13:49 PM PT Interpreting Station ID: [id number]
== END ==
PROVIDERS: PCP Family Medicine; Referring Provider Family Medicine; Visit Provider Family Medicine
DX: M81.0 Age-related osteoporosis without current pathological fracture (principal); Z12.31 Encounter for screening mammogram for malignant neoplasm of breast; Z80.3 Family history of malignant neoplasm of breast; R92.333 Mammographic heterogeneous density, bilateral breasts
CPT/HCPCS: 77063; 77067; 77080

== ENCOUNTER → 2024-12-10 14:31 | Outpatient (CLI) | payer MEDICARE, BC, SELFPAY ==
[2022-10-25 16:08] VITALS: BMI 19.0
[2024-12-10 15:40] LABS: Hematocrit 36.4 % (36-46); Hemoglobin 12.3 g/dL (12.0-16.0); Mean Corpuscular HGB Conc 33.7 % (30-36); Mean Corpuscular Hemoglobin 32.3 PG (26-34); Mean Corpuscular Volume 95.8 fL (80-100); Platelet Count 253 X10^3/uL (150-400)
[2024-12-10 16:02] LABS: Alanine Aminotransferase 20 IU/L (<35); Albumin 4.1 g/dL (3.5-5.0); Albumin Globulin Ratio 1.3 (1.0-2.8); Alkaline Phosphatase 83 U/L (38-126); Blood Urea Nitrogen 20 mg/dL (7-17); Calcium 9.1 mg/dL (8.4-10.2); Carbon Dioxide 29 mmol/L (22-32); Chloride 102 mmol/L (98-107); Cholesterol 198 mg/dL (140-199); Estimated Glomerular Filt Rate > 60 mL/min (>60); Globulin 3.1 g/dL (1.7-4.1); Glucose 114 mg/dL (70-99); HDL Cholesterol 78 mg/dL (40-60); HEMOLYSIS < 15 (0-50); Potassium 4.0 mmol/L (3.4-5.1); Sodium 138 mmol/L (137-145); Total Protein 7.2 g/dL (6.3-8.2); Triglycerides 84 mg/dL (35-150)
[2024-12-10 16:32] LABS: Ferritin 49 ng/mL (11-264)
== END ==
PROVIDERS: PCP Family Medicine; Referring Provider Family Medicine; Visit Provider Family Medicine
DX: Z00.00 Encounter for general adult medical examination without abnormal findings (principal); G25.81 Restless legs syndrome; M25.50 Pain in unspecified joint
CPT/HCPCS: 36415; 80053; 80061; 82728; 85027; 85651; 86140